=== PATIENT | female | born 1965 | race Caucasian/White ===

== ENCOUNTER → 2018-06-18 18:32 | Outpatient (REF) | payer OTHER, SELFPAY | LOC: LBN 18:32 | PROVIDERS: PCP Nurse Practitioner; Visit Provider Nurse Practitioner | DX: R30.0 Dysuria (principal) | CPT/HCPCS: 87077; 87086; 87186 ==

== ENCOUNTER 2019-06-20 16:16 | Emergency (ER) | payer OTHER, SELFPAY ==
[2019-06-20 16:19] VITALS: BP 156/91; PULSE 80; RESP 18; TEMP 36.6; O2SAT 95
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
[2019-06-20 16:43] LABS: Abs Immature Grans 0.01 k/cumm (0.0-0.09); Absolute Basophil Count 0.02 k/cumm (0.0-0.2); Absolute Eosinophil Count 0.17 k/cumm (0.0-0.7); Absolute Lymphocyte Count 1.47 k/cumm (1.2-3.4); Absolute Monocyte Count 0.48 k/cumm (0.11-0.7); Basophils % 0.3; HCT 41.5 % (36.0-46.0); Immature Grans % 0.2; Lymphocytes % 25.6; Mean Corp. HGB Concentration 33.7 g/dL (32.0-36.0); Mean Corpuscular Hemoglobin 29.5 pg (27.0-33.0); Mean Corpuscular Volume 87.4 fL (80-95); Mean Platelet Volume 9.8 fL (8.0-11.0); Monocytes % 8.3; Neutrophils % 62.6; Platelet Count 238 x1000/uL (130-400); RBC 4.75 m/cumm (4.00-5.20); RBC Distribution Width 12.9 % (11.7-14.6); White Blood Cell Count 5.75 k/cumm (4.4-10.8)
[2019-06-20 16:58] LABS: ALT 36 U/L (12-78); AST 11 U/L (15-37); Albumin 4.1 g/dL (3.4-5.0); Alkaline Phosphatase 105 U/L (46-116); Anion Gap 11.9 mmol/L (3-11); BUN 23 mg/dL (7-18); Bilirubin, Total 0.4 mg/dL (0.2-1.0); CO2 23.1 mmol/L (21.0-32.0); CREATININE 0.67 mg/dL (0.55-1.02); Chloride 105 mmol/L (98-107); Glucose 91 mg/dL (70-100); Potassium 4.3 mmol/L (3.5-5.1); Sodium 140 mmol/L (136-145); Total Protein 8.2 g/dL (6.4-8.2)
[2019-06-20] MEDS: Omnipaque 350 MG/ML 100 ML BTL IJ (17:23)
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
[2019-06-20] MEDS: Ibuprofen 800 MG TAB PO (17:28)
[2019-06-20] MEDS: Acetaminophen 500 MG TAB 1000 MG PO (17:28)
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
[2019-06-20 19:15] VITALS: BP 134/78; PULSE 80; RESP 16; O2SAT 98
== END 2019-06-20 19:21 | disposition home or self-care (01) ==
PROVIDERS: Emergency Provider Student in an Organized Health Care Education/Training Program; PCP Nurse Practitioner
DX: S83.92XA Sprain of unspecified site of left knee, initial encounter (principal); S40.011A Contusion of right shoulder, initial encounter; M54.2 Cervicalgia; R51 Headache; M79.652 Pain in left thigh; M54.6 Pain in thoracic spine; V43.52XA Car driver injured in collision with other type car in traffic accident, initial encounter
CPT/HCPCS: 29505; 36415; 73562; 80053; 99285; 70450; 71260; 72125; 73700; 85025; 99284; E0114; J3490; L0172; L1830

== ENCOUNTER 2022-06-29 15:40 | Emergency (ER) | payer OTHER, SELFPAY ==
[2022-06-29 15:46] VITALS: BP 158/95; PULSE 93; RESP 14; TEMP 36.5; O2SAT 97
--- NOTE | 2022-06-29 16:05 | W.ED.GENAD ---
Discharge Plan Disposition Patient Disposition: HOME Condition: Stable Discharge Details Clinical Impression: Insect bite Primary Care Provider: Liyah Flynn ED Provider: Lilly Gustafson Home Meds and New Rx's Prescriptions: No Action multivitamin [Daily Vitamin] 1 EACH tablet 1 ea PO DAILY calcium carbonate-vitamin D3 1 EACH tablet 1 ea PO DAILY ascorbate calcium (vitamin C) 500 MG tablet 500 mg PO DAILY albuterol sulfate 2.5 MG/0.5 ML solution for nebulization 2.5 mg Inhalation Q4H PRN Qty: 30 0RF levalbuterol tartrate [Xopenex HFA] 15 GM HFA aerosol inhaler 2 puff Inhalation Q6H PRN Qty: 1 3RF Rx Instructions: for cough & SOB amlodipine 5 mg tablet 5 tab PO DAILY Label Comments: TAKE 1 TABLET BY MOUTH ONCE DAILY Discharge Instructions Instructions: Insect Bite or Sting (ED) Additional Instructions: You may take 1 or 2 Benadryl every 6 to as needed for itching. You may take a nondrowsy antihistamine during the day such as Claritin or Zyrtec or similar. Apply hydrocortisone 3 times daily as needed. You may also purchase [id number] Benadryl topical ointment. Follow up with primary care provider in 3-5 days. Return to ED sooner if any worsening or concerns. Increase oral fluids. Please take Tylenol or Ibuprofen with food every 4-6 hours as needed for pain and swelling. Stand Alone Forms: Work Release Referrals: Liyah Flynn, [employer] [employer] [Primary Care Provider] - 1 week Discharge Data Discharge Date/Time-TO BE ENTERED AT DEPARTURE: 06/29/22 16:31 Medical Decision Making Patient is here, and topical hydrocortisone cream home care. Discussed strict return instructions. This text was generated using [employer] system, please disregard any oddities of phrase or misspellings. HPI General Mode of arrival: ambulatory. Date/Time Provider Initiated Documentation: 06/29/22 15:54. Limitations to Documentation: no limitations. Information obtained by: patient and RN notes reviewed. HPI Narrative: 57-year-old female presents to the ER with chief complaint of possible spider bite to the back of her right ankle. This occurred while she was at work. She reports feeling dizzy and lightheaded, swelling and she started shortly thereafter. She remembers seeing bilateral reduction. She can put some anti-itch on it prior to arrival. Small area approximately 9 cm x 2 cm of erythema and swelling noted to the posterior ankle. No other associated symptoms or complaints. Related Data Home Medications Medication Instructions Recorded Confirmed multivitamin (Daily Vitamin tablet) 1 ea PO DAILY 08/11/14 06/29/22 calcium carbonate 600 mg-vitamin 1 ea PO DAILY 10/11/16 06/29/22 D3 5 mcg (200 unit) tablet albuterol sulfate 2.5 mg/0.5 mL 2.5 mg (0.5 mL) inhalation Q4H PRN 12/18/17 06/29/22 solution for nebulization #30 vials ascorbate calcium (vitamin C) 500 500 mg PO DAILY 12/18/17 06/29/22 mg tablet levalbuterol tartrate 45 2 puff inhalation Q6H PRN ##1 12/18/17 06/29/22 mcg/actuation aerosol inhaler (Xopenex HFA) amlodipine 5 mg tablet 5 tab PO DAILY 06/29/22 06/29/22 Previous Rx's Medication Instructions Recorded albuterol sulfate 2.5 mg/0.5 mL 2.5 mg (0.5 mL) inhalation Q4H PRN 12/18/17 solution for nebulization #30 vials levalbuterol tartrate 45 2 puff inhalation Q6H PRN ##1 12/18/17 mcg/actuation aerosol inhaler (Xopenex HFA) Allergies Allergy/AdvReac Type Severity Reaction Status Date / Time codeine Allergy Severe ANAPHALAXSI Verified 06/29/22 15:50 S Sulfa (Sulfonamide Allergy Severe FACIAL Verified 06/29/22 15:50 Antibiotics) SWELLING amoxicillin trihydrate Allergy Intermediate Bodywide Verified 06/29/22 15:50 [From Augmentin] pruritic rash potassium clavulanate Allergy Intermediate Bodywide Verified 06/29/22 15:50 [From Augmentin] pruritic rash erythromycin base AdvReac Intermediate GI DISTRESS Verified 06/29/22 15:50 pregabalin [From Lyrica] AdvReac Intermediate HEADACHE Verified 06/29/22 15:50 carisoprodol [From Soma] AdvReac Mild Headache & Verified 06/29/22 15:50 Spacey chlorthalidone AdvReac Mild HYPOKALEMIA Verified 06/29/22 15:50 General Stated Complaint: RashLesion VERÓNICA: 4 Review of Systems Integumentary/Breasts Skin/Breast: Reports as per HPI, Reports pruritus, Reports erythema, Reports rash, Reports skin pain and Reports skin swelling PFSH All Active Problems (Updated 06/29/22 @ 16:09 by Lilly Gustafson NP) Insect bite (Acute) Depressive disorder (Chronic 11/17/11) Eczema of external ear (Acute) Left knee pain (Chronic) Anxiety (Chronic) Primary fibromyalgia syndrome (Acute 11/17/11) 08/20; consults with Dr. Thomas [facility] Rheum Obesity (Acute 07/05/12) Nasal septal perforation (Acute 09/18/17) Laryngoscopy w/ bx Dr. Paulino Marino 09/2017 acute and chronic inflammation, ulceration and subepithelial fibrosis Mixed incontinence (Acute 11/17/11) Kegel's; since TAMMI and bladder repair Insomnia (Acute 05/21/18) Family history of diabetes mellitus (Acute 11/17/11) Essential hypertension (Acute 04/16/13) dx 04/2013 Degenerative joint disease (DJD) of lumbar spine (Acute 07/09/14) MRI L4-L5 disc bulge Neurosurg consult 06/2014 Pain Clinic [facility] Dr. Auguste; epidural steroid injection 09/2014 Asthma (Acute 11/17/11) Albuterol once per month Acute dermatitis (Acute 06/26/13) EARS Surgical History Appendectomy 1999 Bladder Surgery Sling to help incontinence, 1992 Cholecystectomy 1991 epidural steroid injection (10/08/14) Dr Sherry Zamudio forearm fracture, 2010 LARYNGOSCOPY W/ BX Left medial tarsal tunnel surgery, Anjana, 2008 TAMMI/BSO 1992, removed due to ruptured cysts Tubal Ligation, Laparoscopic 1990 Vaginal hysterectomy Total hysterectomy, 1992 Social History Smoking/Tobacco Use Status: Never Smoking risk assessment performed?: Yes Alcohol Intake: current Alcohol Intake frequency: holidays/special occasions only Drug use: Never Substance use type: does not use What type of physical activity do you participate in: walking and other Details: active at work Do you feel safe at home: Yes Do you feel safe in your relationship?: Yes Exam Extrem Right lower extremity: ankle Details: tenderness and swelling Upper/lower leg/hip images: 1. Approximately 3 x 2 cm area of erythema and swelling Course Vital Signs Vital signs: Vital Signs Temperature 36.5 C 06/29/22 15:46 Pulse 93 H 06/29/22 15:46 Respiratory Rate 14 06/29/22 15:46 Blood Pressure 158/95 H 06/29/22 15:46 Pulse Oximetry 97 06/29/22 15:46 Temperature 36.5 C 06/29/22 15:46 Temperature Source Temporal Artery Scan 06/29/22 15:46 Pulse 93 H 06/29/22 15:46 Respiratory Rate 14 06/29/22 15:46 Respiratory Effort Non-Labored 06/29/22 15:53 Blood Pressure 158/95 H 06/29/22 15:46 Blood Pressure Position Sitting 06/29/22 15:46 Pulse Oximetry 97 06/29/22 15:46 Oxygen Delivery Method Room Air 06/29/22 15:46 Oxygen Flow Rate 0 06/29/22 15:46 Pain Level 4 06/29/22 15:46 PAWSS Have you Been Recently Intoxicated or Drunk Within the Last 30 days?: Yes Have you Ever Experienced Previous Episodes of Alcohol Withdrawal?: No Have you ever Experienced Withdrawal Seizures?: No Have you ever Experienced Delirium Tremens(DT)s?: No Have you ever undergone Alcohol Rehabilitation Treatment (i.e, inpt ot outpatient treatment programs)?: No Have you ever Experienced Blackouts?: No Have you ever Combined Alcohol with other Downers within the last 90 days?: No Have you ever Combined Alcohol with any other Substance of Abuse during the last 90 days?: No Positive Blood Alcohol level on Presentation? [PCS.BAL]: No Evidence of Increased Autonomic Activity (i.e. HR>120, tremor, sweating, agitation, nausea)?: No Result: 1
[2022-06-29] MEDS: Cetirizine 10 MG TAB PO (16:30)
[2022-06-29] MEDS: Famotidine 20 MG TAB PO (16:30)
[2022-06-29] MEDS: Hydrocortisone 1% CR 30 GM TUBE TP (16:30)
== END 2022-06-29 16:31 | disposition home or self-care (01) ==
PROVIDERS: Emergency Provider Registered Nurse Emergency; PCP Nurse Practitioner
DX: S91.051A Open bite, right ankle, initial encounter (principal); W57.XXXA Bitten or stung by nonvenomous insect and other nonvenomous arthropods, initial encounter; Y99.0 Civilian activity done for income or pay
CPT/HCPCS: 99283

== ENCOUNTER → 2022-10-05 01:30 | Outpatient (CLI) | payer BC, SELFPAY ==
--- NOTE | 2022-10-05 07:45 | DI.MAMMO_ITS ---
Exam(s) MAMMO SCREENING EXAM: MAMMO SCREENING CLINICAL HISTORY: screening,Z12.39 TECHNIQUE: Mammograms were interpreted according to the usual protocol including computer analysis w [employer]iere CAD system, tomosynthesis and C-view imaging. COMPARISON: FINDINGS: The breasts are of moderate density with fairly symmetrical distribution of fibroglandular tissue. N o dominant mass or clumped microcalcification is identified in either breast. The current examinatio n is compared with previous examinations including December 2017 and there is a increased prominence of an area of retroareolar nodularity in the right breast seen on CC and MLO views, additional mammog raphic views recommended to evaluate this finding. No other significant change seen. IMPRESSION: Additional mammographic views of the right breast recommended as described above to include CC and ML O spot compression views. Breast ultrasound may be indicated as well depending on the results of add itional mammographic views. BI-RADS Category 0 - Assessment Incomplete: Need additional imaging evaluation Breast Density - Category B - Scattered areas of fibroglandular density
== END ==
PROVIDERS: PCP Nurse Practitioner; Visit Provider Nurse Practitioner
DX: Z12.31 Encounter for screening mammogram for malignant neoplasm of breast (principal); R92.8 Other abnormal and inconclusive findings on diagnostic imaging of breast
CPT/HCPCS: 77063; 77067

== ENCOUNTER 2022-10-07 01:41 | Outpatient (CLI) | payer BC, SELFPAY ==
[2022-10-07 07:27] LABS: HCT 41.5 % (36.0-46.0); HGB 13.7 g/dL (11.2-15.7); MCH 28.8 pg (27.0-33.0); MCV 87 fL (80-95); MPV 9.4 fL (8.0-11.0); Platelet Count 241 10^3/uL (130-400); RBC 4.75 10^6/uL (3.93-5.22); RDW 12.5 % (11.7-14.6); RDW-SD 40.1 fL; WBC 5.66 10^3/uL (4.4-10.8)
[2022-10-07 08:06] LABS: Hemoglobin A1C 5.5 % (<5.7)
[2022-10-07 08:35] LABS: ALT 46 U/L (14-59); AST 22 U/L (15-37); Alkaline Phosphatase 110 U/L (46-116); Anion Gap 10.5 mmol/L (3-11); BUN 16 mg/dL (7-18); Bilirubin, Total 0.8 mg/dL (0.2-1.0); CO2 23.5 mmol/L (21.0-32.0); CREATININE 0.6 mg/dL (0.55-1.02); Calcium 9.1 mg/dL (8.5-10.1); Calculated LDL 123 mg/dL (<100); Chloride 104 mmol/L (98-107); Cholesterol 203 mg/dL (<200); Estimated GFR 105.28 (mL/min/1.73m2); Glucose 111 mg/dL (74-106); HDL Cholesterol 62 mg/dL (40-60); Sodium 138 mmol/L (136-145); Total Protein 8.2 g/dL (6.4-8.2); Triglyceride 94 mg/dL (<150)
== END 2022-10-07 01:42 | disposition home or self-care (01) ==
PROVIDERS: PCP Nurse Practitioner; Visit Provider Nurse Practitioner
DX: E66.9 Obesity, unspecified (principal); Z83.3 Family history of diabetes mellitus; I10 Essential (primary) hypertension
CPT/HCPCS: 36415; 80053; 80061; 85027; 83036

== ENCOUNTER 2022-10-14 00:48 | Outpatient (CLI) | payer BC, SELFPAY ==
--- NOTE | 2022-10-14 10:25 | DI.MAMMO_ITS ---
Exam(s) MAMMO SCREEN CALL BACK UNI EXAM: MAMMO SCREEN CALL BACK UNI CLINICAL HISTORY: INCREASE PROMINENCE OF RETROAREOLAR NODULARITY RT BREAST TECHNIQUE: Spot compression views with tomographic imaging were performed. COMPARISON: 05 October 2022 and prior exams 2013 and 2017. FINDINGS: No suspicious masses or suspicious microcalcifications are seen. No suspicious abnormality is seen on the additional views performed. The findings are consistent wit h overlying fibroglandular tissue. There has been no significant change from prior exams. IMPRESSION: BI-RADS Category 1, Negative Yearly screening mammography is recommended. Breast Density - Category B, scattered fibroglandular densities.
== END 2022-10-14 01:08 ==
LOC: DI 00:48
PROVIDERS: PCP Nurse Practitioner; Visit Provider Nurse Practitioner
DX: Z12.31 Encounter for screening mammogram for malignant neoplasm of breast (principal)
CPT/HCPCS: 77063; 77067

== ENCOUNTER 2022-10-29 18:13 | Emergency (ER) | payer BC, SELFPAY ==
[2022-10-29] VITALS (36 sets, daily range): BP systolic 118–155; BP diastolic 54–97; PULSE 80–119; RESP 12–34; TEMP 37.3; O2SAT 94–98
--- NOTE | 2022-10-29 18:30 | RT.EKG_ITS ---
APPROVED REPORT Exam: Resting ECG Reason for Exam: shoulder pain Patient Location: E HR:101 bpm ECG Measurements Heart Rate 101 AXIS MA 145 P 24 QRSd 80 QRS 25 QT 306 T 2 QTc 398 Conclusion Sinus tachycardia...rate> 99 Probable left atrial enlargement...P >50mS, <-0.10mV V1
--- NOTE | 2022-10-29 18:30 | DI.RAD_ITS ---
Exam(s) XR PORTABLE CHEST AP EXAM: XR PORTABLE CHEST AP CLINICAL HISTORY: chest pain radiates to back TECHNIQUE: 2D digital imaging was performed. COMPARISON: CT CT CHEST W from 06/20/2019 FINDINGS: LUNGS: Clear. No pleural abnormality seen. HEART: Normal size. AORTA: Normal diameter. BONES: Unremarkable for age. Soft tissues: Unremarkable. IMPRESSION: No acute findings. DATA REPOSITORY: RADIATION DOSE DELIVERED:
--- NOTE | 2022-10-29 18:46 | DI.CT_ITS ---
Exam(s) CT THORAX ABD/PEL CTA EXAM: CT THORAX ABD/PEL CTA CLINICAL HISTORY: concern for dissection. TECHNIQUE: Imaging Protocol: Axial computed tomography images with coronal and sagittal reformatted images were created and reviewed CONTRAST MATERIAL: Intravenous: Omnipaque 350 Contrast volume:100 ml Oral: / no COMPARISON: CT ABD PELVIS WO CONTRAST from 07/18/2017 FINDINGS: CHEST: Tracheobronchial tree: Patent where visualized. Mediastinum and Darlene: No dominant adenopathy or fluid collection. Pulmonary parenchyma: Mild atelectasis right lower lobe. No consolidation or dominant measurable mas s. Pleura: No effusion or pneumothorax. Lymph nodes: Within normal limits. Aorta: Thoracic portion non-dilated. No evidence of dissection. No significant atherosclerotic corey nges. Heart: Normal size. No pericardial effusion. Mild coronary artery calcifications. Bones: Degenerative changes in the spine. No lytic or blastic lesions. Small hiatal hernia. ABDOMEN: Liver: Normal density. No measurable mass. Gallbladder and biliary tract: Status post cholecystectomy. No radiodense calculus or dilation. Pancreas: Normal density, no abnormal calcifications or inflammatory process. Spleen: Normal. Kidneys: Normal size, contour and axis. No radiodense stones or obstructive uropathy. No masses seen. Adrenal glands: No masses seen. Aorta: Abdominal portion non-dilated. Lymph nodes: Within normal limits. Soft tissues: Unremarkable. PELVIS: Bladder: Symmetric distention, no gross wall thickening. Bowel: No obstruction or bowel wall thickening. Peritoneal cavity: No ascites, collection or mesenteric inflammatory response. Bones: Degenerative changes greatest at L4-5 causing severe spinal stenosis. Reproductive organs: Status post hysterectomy. IMPRESSION: No acute abnormality in the chest abdomen or pelvis.. RADIATION DOSE DELIVERED: 1,311.2mGy.cm Total DLP DATA REPOSITORY: All CT scans at this facility are submitted to the National Radiology Data Registry (NRDR) Dose Index Registry (DIR) with the [employer] (ACR). RADIATION OPTIMIZATION: All CT scans at this facility use at least one of these dose optimization te chniques: automated exposure control; mA and/or kV adjustment per patient size (includes targeted exa ms where dose is matched to clinical indication); or iterative reconstruction.
--- NOTE | 2022-10-29 18:54 | DI.VRAD_ITS ---
PROCEDURE INFORMATION: Exam: XR Chest Exam date and time: 10/29/2022 6:23 PM Age: 57 years old Clinical indication: Other: Chest pain radiates to back TECHNIQUE: Imaging protocol: Radiologic exam of the chest. Views: 1 view. COMPARISON: CT CHEST W 06/20/2019 5:07 PM FINDINGS: Lungs: Unremarkable. No consolidation. Pleural spaces: Unremarkable. No pleural effusion. No pneumothorax. Heart/Mediastinum: Unremarkable. No cardiomegaly. Bones/joints: Unremarkable. IMPRESSION: No acute findings. Dictated and Authenticated by: Roney Hernandez MD. Ordering:MARIYA Sharpe MD
[2022-10-29 18:55] LABS: Abs Immature Grans 0.03 10^3/uL (0.0-0.06); Absolute Basophil Count 0.04 10^3/uL (0.0-0.2); Absolute Eosinophil Count 0.09 10^3/uL (0.0-0.7); Absolute Lymphocyte Count 1.44 10^3/uL (1.2-3.4); Absolute Monocyte Count 0.81 10^3/uL (0.1-0.8); Absolute Neutrophil Count 8.07 10^3/uL (1.2-6.7); Basophils % 0.4; Eosinophils % 0.9; HCT 40.8 % (36.0-46.0); HGB 13.3 g/dL (11.2-15.7); Immature Grans % 0.3; Lymphocytes % 13.7; MCH 28.6 pg (27.0-33.0); MCHC 32.6 % (32.0-36.0); MCV 88 fL (80-95); MPV 9.5 fL (8.0-11.0); Monocytes % 7.7; Platelet Count 233 10^3/uL (130-400); RBC 4.65 10^6/uL (3.93-5.22); RDW 12.7 % (11.7-14.6); RDW-SD 41.1 fL; WBC 10.48 10^3/uL (4.4-10.8)
[2022-10-29] MEDS: HYDROmorphone 2 MG/ML SYR 1 MG IVP (18:56)
[2022-10-29] MEDS: Ondansetron 4 MG/2 ML VIAL IVP (18:57)
[2022-10-29] MEDS: Ondansetron 4 MG/2 ML VIAL (18:57)
--- NOTE | 2022-10-29 19:11 | W.ED.GENAD ---
Discharge Plan Disposition Patient Disposition: Home Condition: Stable Discharge Details Clinical Impression: Epigastric abdominal pain Primary Care Provider: Liyah Flynn ED Provider: Annemarie Kemp Home Meds and New Rx's Prescriptions: New pantoprazole 40 mg tablet,delayed release (DR/EC) 40 mg PO DAILY Qty: 30 0RF sucralfate 1 gram tablet 1 g PO QACHS Qty: 120 0RF Continued sertraline 25 mg tablet 25 mg PO DAILY Qty: 90 1RF levalbuterol tartrate [Xopenex HFA] 45 mcg/actuation HFA aerosol inhaler 2 puff Inhalation Q6H PRN Qty: 1 12RF Rx Instructions: for cough & SOB multivitamin [Daily Vitamin] 1 EACH tablet 1 ea PO DAILY calcium carbonate-vitamin D3 1 EACH tablet 1 ea PO DAILY No Action acetaminophen [Tylenol Arthritis Pain] 650 mg tablet extended release 1,300 mg PO Q4H PRN PRN ibuprofen 200 mg tablet 800 mg PO Q4H PRN methylprednisolone [Medrol (Norris)] 4 mg tablets,dose pack See Rx Instructions .Route .COMPLEX Qty: 21 0RF Rx Instructions: 6 tabs day 1, 5 tabs day 2, 4 tabs day 3, 3 tabs day 4, 2 tabs day 5, 1 tabs day 6 with food. cyclobenzaprine 10 mg tablet See Rx Instructions PO TID PRN (Reason: muscle spasm) Qty: 20 0RF Rx Instructions: 1/2 to 1 tab orally three times a day PRN; valsartan 80 mg tablet 80 mg PO DAILY Qty: 30 0RF lorazepam 1 mg tablet 1 mg PO ONCE Qty: 1 0RF Discharge Instructions Instructions: Epigastric Pain (ED) Referrals: Liyah Flynn, [employer] [facility] [Primary Care Provider] - Discharge Data Discharge Date/Time-TO BE ENTERED AT DEPARTURE: 10/30/22 00:12 Medical Decision Making Imaging Data Radiologic Study: Imaging: CT Scan Radiologist's impression: Exam(s) PROCEDURE INFORMATION: Exam: CTA Chest With Contrast CTA Abdomen and Pelvis With Contrast Exam date and time: 10/29/2022 7:02 PM Age: 57 years old Clinical indication: Pain; Other: Concern for dissection TECHNIQUE: Imaging protocol: Computed tomographic angiography of the chest with contrast. Computed tomographic angiography of the abdomen and pelvis with contrast. 3D rendering (Not supervised by radiologist): MIP and/or 3D reconstructed images were created by the technologist. COMPARISON: CT CHEST W 06/20/2019 5:07 PM FINDINGS: VASCULATURE: Pulmonary arteries: Pulmonary artery opacification is of good technical quality. No embolism evident. Aorta: Thoracic aorta is normal in course and caliber. No aneurysm. No dissection. Abdominal aorta without aneurysmal change. Celiac trunk and mesenteric arteries: Celiac artery is widely patent. Superior mesenteric arteries widely patent. Renal arteries: Right renal artery is widely patent. Left renal arteries widely patent. Right iliac arteries: Right iliac artery is widely patent. Left iliac arteries: Left iliac artery is widely patent. CHEST: Lungs: No acute lung infiltrates or significant airspace consolidation. Minor atelectasis of the posteroinferior right lower lobe. Mild bronchiectasis suggesting COPD. Pleural spaces: Unremarkable. No pneumothorax. No pleural effusion. Heart: Normal heart size. No pericardial effusion. Mild coronary artery atherosclerotic calcium. Diaphragm: small hiatal hernia. No acute features. Small bowel loops are normal in course and caliber. There is no mucosal edema or bowel wall thickening. No obstructive features. ABDOMEN AND PELVIS: Liver: The liver is normal in size, contour and attenuation. Gallbladder and bile ducts: Patient has had a previous cholecystectomy. There is no biliary dilatation. There are no ductal stones visible. Pancreas: The pancreas is normal in contour and attenuation. Spleen: The spleen is normal in size, contour and attenuation. Adrenal glands: The adrenal glands are normal in size and contour bilaterally. Kidneys and ureters: The kidneys bilaterally are unremarkable. Normal attenutation. No hydronephrosis. No calculi. Stomach and bowel: Gastric morphology is unremarkable. No edema. No gastric outlet obstruction. The colon contains formed fecal material. There is no bowel wall thickening. No inflammatory features. No obstruction. Appendix: No evidence of appendicitis. Intraperitoneal space: Unremarkable. No free air. No significant fluid collection. Urinary bladder: Unremarkable. No mass. Reproductive: Previous hysterectomy. Lymph nodes: Unremarkable. No enlarged lymph nodes. Bones/joints: Thoracic spine degenerative disease. No acute skeletal changes of the thorax. Degenerative lumbar spine changes. Degenerative anterolisthesis of L4 on L5 at approximally 7-8 mm. Severe spinal stenosis at L4-L5. Soft tissues: Chest wall soft tissues are unremarkable. IMPRESSION: 1. Thoracic and abdominal aorta are unremarkable. No aneurysmal change. No dissection. 2. Pulmonary artery without embolism. 3. Mesenteric vessels are widely patent. 4. Lung hoffmann are clear. No pleural disease. 5. Normal cardiac size. No pericardial effusion. Mild left coronary artery atherosclerotic calcium. 6. Abdominal and pelvic viscera are unremarkable. No acute changes. 7. Previous hysterectomy. Previous cholecystectomy. 8. Degenerative lumbar spine disease. Severe spinal stenosis at L4-L5. Dictated and Authenticated by: Roney Hernandez MD. Ordering:MARIYA Sharpe MD Radiologic Study #2: Imaging: X-Ray Radiologist's impression: PROCEDURE INFORMATION: Exam: XR Chest Exam date and time: 10/29/2022 6:23 PM Age: 57 years old Clinical indication: Other: Chest pain radiates to back TECHNIQUE: Imaging protocol: Radiologic exam of the chest. Views: 1 view. COMPARISON: CT CHEST W 06/20/2019 5:07 PM FINDINGS: Lungs: Unremarkable. No consolidation. Pleural spaces: Unremarkable. No pleural effusion. No pneumothorax. Heart/Mediastinum: Unremarkable. No cardiomegaly. Bones/joints: Unremarkable. IMPRESSION: No acute findings. Dictated and Authenticated by: Roney Hernandez MD. Ordering:MARIYA Sharpe MD HPI General Limitations to Documentation: no limitations. Information obtained by: patient. HPI Narrative: This is a 57-year-old female with history of hypertension asthma fibromyalgia anxiety who was in her usual state of health when she had a sudden onset of chest pain that she states radiates to her back and right shoulder. She says that the pain is sharp and that it hurts to take a deep breath. She feels restless. It hurts more to lay flat. She states she feels short of breath only because of the pain cannot take a deep breath. There is no radiation into her jaw left arm she states the pain is more severe than when she broke my arm. She denies any similar history in the past. There was no trauma. Related Data Home Medications Medication Instructions Recorded Confirmed multivitamin (Daily Vitamin tablet) 1 ea PO DAILY 08/11/14 10/29/22 calcium carbonate 600 mg-vitamin 1 ea PO DAILY 10/11/16 10/29/22 D3 5 mcg (200 unit) tablet levalbuterol tartrate 45 2 puff inhalation Q6H PRN ##1 09/19/22 10/29/22 mcg/actuation aerosol inhaler (Xopenex HFA) sertraline 25 mg tablet 25 mg PO DAILY #90 tabs 10/17/22 10/29/22 pantoprazole 40 mg tablet,delayed 40 mg PO DAILY #30 tabs 10/29/22 release sucralfate 1 gram tablet 1 g PO QACHS #120 tabs 10/29/22 acetaminophen 650 mg 1,300 mg PO Q4H PRN PRN 10/31/22 tablet,extended release (Tylenol Arthritis Pain) cyclobenzaprine 10 mg tablet See Rx Instructions PO TID PRN 10/31/22 10/31/22 muscle spasm #20 tabs ibuprofen 200 mg tablet 800 mg PO Q4H PRN 10/31/22 methylprednisolone 4 mg tablets in See Rx Instructions .Route 10/31/22 10/31/22 a dose pack (Medrol (Twyxt)) .COMPLEX #21 dose pk valsartan 80 mg tablet 80 mg PO DAILY #30 tabs 10/31/22 10/31/22 lorazepam 1 mg tablet 1 mg PO ONCE 30 minutes Before MRI 11/08/22 #1 tab Previous Rx's Medication Instructions Recorded levalbuterol tartrate 45 2 puff inhalation Q6H PRN ##1 09/19/22 mcg/actuation aerosol inhaler (Xopenex HFA) sertraline 25 mg tablet 25 mg PO DAILY #90 tabs 10/17/22 pantoprazole 40 mg tablet,delayed 40 mg PO DAILY #30 tabs 10/29/22 release sucralfate 1 gram tablet 1 g PO QACHS #120 tabs 10/29/22 cyclobenzaprine 10 mg tablet See Rx Instructions PO TID PRN 10/31/22 muscle spasm #20 tabs methylprednisolone 4 mg tablets in See Rx Instructions .Route 10/31/22 a dose pack (Medrol (Twyxt)) .COMPLEX #21 dose pk valsartan 80 mg tablet 80 mg PO DAILY #30 tabs 10/31/22 lorazepam 1 mg tablet 1 mg PO ONCE 30 minutes Before MRI 11/08/22 #1 tab Allergies Allergy/AdvReac Type Severity Reaction Status Date / Time codeine Allergy Severe ANAPHALAXSI Verified 10/31/22 10:22 S Sulfa (Sulfonamide Allergy Severe FACIAL Verified 10/31/22 10:22 Antibiotics) SWELLING amoxicillin trihydrate Allergy Intermediate Bodywide Verified 10/31/22 10:22 [From Augmentin] pruritic rash potassium clavulanate Allergy Intermediate Bodywide Verified 10/31/22 10:22 [From Augmentin] pruritic rash erythromycin base AdvReac Intermediate GI DISTRESS Verified 10/31/22 10:22 pregabalin [From Lyrica] AdvReac Intermediate HEADACHE Verified 10/31/22 10:22 carisoprodol [From Soma] AdvReac Mild Headache & Verified 10/31/22 10:22 Spacey chlorthalidone AdvReac Mild HYPOKALEMIA Verified 10/31/22 10:22 General Stated Complaint: Chest Pain VERÓNICA: 2 Review of Systems All systems reviewed & are unremarkable except as noted in HPI and below ENT Ears, Nose, Mouth, and Throat: Denies neck pain Cardiovascular Cardiovascular: Reports chest pain (Constant) and Denies dyspnea Respiratory Respiratory: Denies cough, Denies dyspnea and Denies wheezing Gastrointestinal Gastrointestinal: Denies abdominal pain, Denies constipation, Denies nausea and Denies vomiting Musculoskeletal Musculoskeletal: Denies arthralgias, Denies neck pain and Denies numbness Neurologic Neurologic: Denies numbness Allergic/Immunologic Allergic/Immunologic: Denies wheezing PFSH All Active Problems (Updated 10/29/22 @ 23:06 by Annemarie Kemp NP) Epigastric abdominal pain (Acute) Depressive disorder (Chronic 11/17/11) Eczema of external ear (Acute) Left knee pain (Chronic) Anxiety (Chronic) Primary fibromyalgia syndrome (Acute 11/17/11) 08/20; consults with Dr. Thomas [facility] Rheum Obesity (Acute 07/05/12) Nasal septal perforation (Acute 09/18/17) Laryngoscopy w/ bx Dr. Paulino Marino 09/2017 acute and chronic inflammation, ulceration and subepithelial fibrosis Mixed incontinence (Acute 11/17/11) Kegel's; since TAMMI and bladder repair Insomnia (Acute 05/21/18) Family history of diabetes mellitus (Acute 11/17/11) Essential hypertension (Acute 04/16/13) dx 04/2013 Degenerative joint disease (DJD) of lumbar spine (Acute 07/09/14) MRI L4-L5 disc bulge Neurosurg consult 06/2014 Pain [facility] Dr. Auguste; epidural steroid injection 09/2014 Asthma (Acute 11/17/11) Albuterol once per month Acute dermatitis (Acute 06/26/13) EARS Surgical History Appendectomy 1999 Bladder Surgery Sling to help incontinence, 1992 Cholecystectomy 1991 epidural steroid injection (10/08/14) Dr Sherry Zamudio forearm fracture, 2010 LARYNGOSCOPY W/ BX Left medial tarsal tunnel surgery, Anjana, 2008 TAMMI/BSO 1992, removed due to ruptured cysts Tubal Ligation, Laparoscopic 1990 Vaginal hysterectomy Total hysterectomy, 1992 Family History (Updated 10/17/22 @ 11:28 by Divya Ford RN) Maternal Aunt No problems noted. Paternal Uncle Alcohol use disorder Asthma Paternal Aunt Alcohol use disorder Asthma Breast cancer Maternal Uncle Alcohol use disorder Stroke Father Asthma Cancer Prostate, bladder Depression Diabetes Heart disease Hypertension Prostate cancer Paternal Grandmother Asthma Paternal Cousin Asthma Mother Cancer throat Depression Diabetes Heart disease Hyperlipidemia Hypertension Stroke Brother Cancer prostate, bladder, rectal Brother AIDS Prostate cancer Social History (Updated 10/17/22 @ 11:38 by Divya Ford RN) Smoking/Tobacco Use Status: Never Second Hand Exposure: Yes Smoking risk assessment performed?: Yes Alcohol Intake: current Alcohol Intake frequency: a few times a month Drug use: Never Substance use type: does not use Adopted: No Caregiver/Support person: No Foster care: No Household members: significant other Housing: house Number of Children: 2 number of grandchildren: 9 Communication Needs: Corrective Lenses Education Level: college 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: Associates Do you need help understanding health information?: Never current occupation: [employer] Pets and animals: No Sexually active: Yes Do you think of yourself as: straight/heterosexual Current gender identity: female What is your relationship status?: living with partner How often do you talk on the phone with friends or family?: three or more times per week How often do you get together with friends or relatives?: once per week Do you belong to any clubs or organized social groups?: no Panel score (0-1 are the most socially isolated patients): 2 What type of physical activity do you participate in: walking and other Details: active at work Elina/[employer]: [employer] Special elina needs: No Seatbelt use: sometimes Helmet use: Yes Helmet use: always Drive intox or ride w/intox 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 Do you feel safe at home: Yes Do you feel safe in your relationship?: Yes Exam Const General: acute distress severe and ill appearing acutely Nutritional Appearance: overweight Orientation: alert, awake and oriented x3 [facility] Head: normal to inspection, normocephalic and atraumatic Mouth: oral mucosae normal Chest Chest: normal inspection of the chest Resp Effort & Inspection: normal respiratory effort, no audible wheezes, no cough, respiratory effort not decreased and not labored Auscultation: clear to auscultation bilaterally Cardio Rate: tachycardic Rhythm: regular rhythm GI Inspection: normal to inspection Palpation: soft Skin General skin exam: no rashes or lesions noted Neuro General: patient alert, patient awake, patient oriented x3 and no focal motor deficits Extrem General: normal to inspection and full ROM Course Vital Signs Vital signs: Vital Signs Temperature 37.3 C 10/29/22 18:34 Pulse 106 H 10/29/22 18:34 Respiratory Rate 22 10/29/22 18:34 Blood Pressure 155/97 H 10/29/22 18:34 Pulse Oximetry 98 10/29/22 18:34 Temperature 37.3 C 10/29/22 18:34 Temperature Source Temporal Artery Scan 10/29/22 18:34 Pulse 106 H 10/29/22 18:34 Respiratory Rate 22 10/29/22 18:34 Respiratory Effort 10/29/22 18:48 Blood Pressure 155/97 H 10/29/22 18:34 Blood Pressure Position Sitting 10/29/22 18:34 Pulse Oximetry 98 10/29/22 18:34 Oxygen Delivery Method Room Air 10/29/22 18:34 Oxygen Flow Rate 0 10/29/22 18:34 Pain Level 10 10/29/22 18:34 Lab/Test Results Lab/Test Results: Laboratory Tests Range/Units 10/29/22 18:43 WBC (4.4-10.8) 10^3/uL 10.48 RBC (3.93-5.22) 10^6/uL 4.65 Hgb (11.2-15.7) g/dL 13.3 Hct (36.0-46.0) % 40.8 MCV (80-95) fL 88 MCH (27.0-33.0) pg 28.6 MCHC (32.0-36.0) % 32.6 RDW (11.7-14.6) % 12.7 Plt Count (130-400) 10^3/uL 233 MPV (8.0-11.0) fL 9.5 Immature Gran % 0.3 Neutrophils % 77.0 Lymphocytes % 13.7 Monocytes % 7.7 Eosinophils % 0.9 Basophils % 0.4 Nucleated RBC % (0.0-0.3) % 0.0 Absolute Neutrophils (1.2-6.7) 10^3/uL 8.07 H Absolute Lymphocytes (1.2-3.4) 10^3/uL 1.44 Absolute Monocytes (0.1-0.8) 10^3/uL 0.81 H Absolute Eosinophils (0.0-0.7) 10^3/uL 0.09 Absolute Basophils (0.0-0.2) 10^3/uL 0.04
[2022-10-29 19:18] LABS: ALT 34 U/L (14-59); AST 20 U/L (15-37); Albumin 4.2 g/dL (3.4-5.0); Alkaline Phosphatase 115 U/L (46-116); Anion Gap 7.3 mmol/L (3-11); BUN 20 mg/dL (7-18); Bilirubin, Total 0.5 mg/dL (0.2-1.0); CO2 28.7 mmol/L (21.0-32.0); CREATININE 0.6 mg/dL (0.55-1.02); Calcium 9.3 mg/dL (8.5-10.1); Chloride 102 mmol/L (98-107); Estimated GFR 105.28 (mL/min/1.73m2); Glucose 99 mg/dL (74-106); Sodium 138 mmol/L (136-145); Total Protein 8.5 g/dL (6.4-8.2); Troponin I < 50 ng/L (<or=60)
[2022-10-29 19:19] LABS: INR 0.9 (0.9-1.1); Prothrombin Time 9.5 sec (9.3-11.0)
--- NOTE | 2022-10-29 19:36 | DI.VRAD_ITS ---
PROCEDURE INFORMATION: Exam: CTA Chest With Contrast CTA Abdomen and Pelvis With Contrast Exam date and time: 10/29/2022 7:02 PM Age: 57 years old Clinical indication: Pain; Other: Concern for dissection TECHNIQUE: Imaging protocol: Computed tomographic angiography of the chest with contrast. Computed tomographic angiography of the abdomen and pelvis with contrast. 3D rendering (Not supervised by radiologist): MIP and/or 3D reconstructed images were created by the technologist. COMPARISON: CT CHEST W 06/20/2019 5:07 PM FINDINGS: VASCULATURE: Pulmonary arteries: Pulmonary artery opacification is of good technical quality. No embolism evident. Aorta: Thoracic aorta is normal in course and caliber. No aneurysm. No dissection. Abdominal aorta without aneurysmal change. Celiac trunk and mesenteric arteries: Celiac artery is widely patent. Superior mesenteric arteries widely patent. Renal arteries: Right renal artery is widely patent. Left renal arteries widely patent. Right iliac arteries: Right iliac artery is widely patent. Left iliac arteries: Left iliac artery is widely patent. CHEST: Lungs: No acute lung infiltrates or significant airspace consolidation. Minor atelectasis of the posteroinferior right lower lobe. Mild bronchiectasis suggesting COPD. Pleural spaces: Unremarkable. No pneumothorax. No pleural effusion. Heart: Normal heart size. No pericardial effusion. Mild coronary artery atherosclerotic calcium. Diaphragm: small hiatal hernia. No acute features. Small bowel loops are normal in course and caliber. There is no mucosal edema or bowel wall thickening. No obstructive features. ABDOMEN AND PELVIS: Liver: The liver is normal in size, contour and attenuation. Gallbladder and bile ducts: Patient has had a previous cholecystectomy. There is no biliary dilatation. There are no ductal stones visible. Pancreas: The pancreas is normal in contour and attenuation. Spleen: The spleen is normal in size, contour and attenuation. Adrenal glands: The adrenal glands are normal in size and contour bilaterally. Kidneys and ureters: The kidneys bilaterally are unremarkable. Normal attenutation. No hydronephrosis. No calculi. Stomach and bowel: Gastric morphology is unremarkable. No edema. No gastric outlet obstruction. The colon contains formed fecal material. There is no bowel wall thickening. No inflammatory features. No obstruction. Appendix: No evidence of appendicitis. Intraperitoneal space: Unremarkable. No free air. No significant fluid collection. Urinary bladder: Unremarkable. No mass. Reproductive: Previous hysterectomy. Lymph nodes: Unremarkable. No enlarged lymph nodes. Bones/joints: Thoracic spine degenerative disease. No acute skeletal changes of the thorax. Degenerative lumbar spine changes. Degenerative anterolisthesis of L4 on L5 at approximally 7-8 mm. Severe spinal stenosis at L4-L5. Soft tissues: Chest wall soft tissues are unremarkable. IMPRESSION: 1. Thoracic and abdominal aorta are unremarkable. No aneurysmal change. No dissection. 2. Pulmonary artery without embolism. 3. Mesenteric vessels are widely patent. 4. Lung hoffmann are clear. No pleural disease. 5. Normal cardiac size. No pericardial effusion. Mild left coronary artery atherosclerotic calcium. 6. Abdominal and pelvic viscera are unremarkable. No acute changes. 7. Previous hysterectomy. Previous cholecystectomy. 8. Degenerative lumbar spine disease. Severe spinal stenosis at L4-L5. Dictated and Authenticated by: Roney Hernandez MD. Ordering:MARIYA hSarpe MD
[2022-10-29 19:54] LABS: Lipase 55 U/L (73-393)
[2022-10-29 20:19] LABS: D-Dimer 660 ng/mlFEU (<500)
[2022-10-29] MEDS: Ketorolac 15 MG/ML VIAL IVP (20:42)
[2022-10-29] MEDS: Pantoprazole 40 MG VIAL IVP (20:42)
[2022-10-29] MEDS: Ketorolac 15 MG/ML VIAL (20:42)
[2022-10-29] MEDS: Acetaminophen 500 MG TAB 1000 MG PO (22:41)
[2022-10-29] MEDS: Lidocaine 5% Patch 2 PATCH TP (22:42)
[2022-10-29] MEDS: Lidocaine 5% Patch 1 PATCH (22:42)
[2022-10-29 23:00] LABS: Troponin I < 50 ng/L (<or=60)
== END 2022-10-30 00:12 | disposition home or self-care (01) ==
PROVIDERS: Emergency Provider Nurse Practitioner Acute Care; PCP Nurse Practitioner
DX: R10.13 Epigastric pain (principal); I10 Essential (primary) hypertension; J45.909 Unspecified asthma, uncomplicated
CPT/HCPCS: 36415; 71275; 80053; 83690; 86850; 86900; 86901; 93005; 96374; 96375; 99285; 71045; 74174; 84484; 85025; 85379; 85610; 93010; J1170; J1885; J2405

== ENCOUNTER 2022-11-03 00:52 | Outpatient (CLI) | payer BC, SELFPAY ==
--- NOTE | 2022-11-03 08:00 | ETT_ITS ---
APPROVED REPORT Exam: Exercise Treadmill Patient Location: Out-Patient Room/Bed: Stress Nurse: Roselyn Tolentino RN Ordering Provider:VIDAL POWERS, Contact Number: [phone] BMI: 36.72 Baseline Rhythm: Sinus Rhythm Indications: Family h/o heart disease, chest pain Medical History Medical History: HTN, anxiety, obesity, asthma, depression, fibromyalgia Cardiac Medications: Amlodipine, levalbuterol tartrate, pantoprazole Allergies: codeine, sulfa, augmentin, erythromycin, pregabalin, carisoprodol, chlorthalidone Cardiac Risk Factors: +family history, HTN, asthma, obesity Previous Cardiac Procedures: None Pretest Chest Pain Characteristics: None Exercise History: Sedentary Physical Disabilities: None Stress Test Details Test: Exercise stress testing was performed using a Ivan protocol. Rest Stress HR Resting HR Supine: 83 bpm Max Heart Rate (APMHR): 164 bpm Resting HR Standin bpm Target HR (85% APMHR): 139 bpm Max HR Achieved: 160 bpm % of APMHR: 98 Recovery HR: 88 bpm HR response to stress: Normal HR response to stress BP Resting BP Supine: 122/70 mmHg Resting BP Standin/68 mmHg Max BP: 168/68 mmHg Recovery BP: 120/78 mmHg BP response to stress: Normal blood pressure response to stress. ECG Resting ECG: Sinus Rhythm Ectopy: None Stress ECG: Sinus Tachycardia ST Change: 0.3-1 ST depression isolated in lead II Lead(s): II Stage: [address] Deviation: 1 mm Arrhythmia: None Recovery ECG: Sinus Rhythm Recovery ST Change: No significant ST segment changes noted Recovery Arrhythmia: None Clinical Reason for Termination: Fatigue Stress Symptoms: Lightheaded, dizziness, slight pinch Exercise duration: 4 min54 sec Highest Stage Reached: Stage 2: 2.5 mph at 12% grade. Exercise capacity: 6.92 METs Angina Score: None Butler Treadmill Score: -1.0 Rate Pressure Product: [id number] Stress ECG Conclusion 1. Resting electrocardiogram was within normal limits 2. Patient exercised on Ivan protocol and completed a workload of 6. 9 2 METS 3. Normal heart rate and blood pressure response to exercise. Patient achieved 98% of predicted hear t rate for age 4. Patient described atypical chest pain (slight pinch) at peak exercise 5. Electrocardiographic portion of the test did not demonstrate myocardial ischemic changes 6. There were no dysrhythmias Butler Treadmill Score is -1.0 which is Moderate risk. Stress Test Summary STAGE Time (mins) Speed (mph) Grade (%) HR BP SpO2 SYMPTOMS METS Supine 83 122/70 Standing 90 130/68 1 3 1.7 10 133 144/76 4.5 2 6 2.5 12 158 98% lightheaded, dizziness, slight pinch 7 1 min recovery 119 184/62 97% 3 min recovery 81 168/68 symptoms resolved 6 min recovery 88 120/78 Pt presented to lab for cardiac stress testing. Prior to test, 10/29/22 patient was seen in the ER fo r chest pain. When asked about her symptoms prior to the test patient stated that since her ER visit she felt as though she can't take a deep breath and her inhalers are not helpful with this. Patient e xercised on the treadmill with no adverse symptoms but did report dizziness and lightheadedness in st age 3, prompting her to ask to stop the test. Patient reported a slight pinch during test. Patient stated that she had no symptoms similar to those that prompted her ER visit during the stress test. D izziness resolved with rest on the stretcher.
== END 2022-11-03 01:12 ==
LOC: DI 00:52
PROVIDERS: PCP Nurse Practitioner; Visit Provider Nurse Practitioner
DX: R07.9 Chest pain, unspecified (principal); Z82.49 Family history of ischemic heart disease and other diseases of the circulatory system
CPT/HCPCS: 93017

== ENCOUNTER 2022-12-02 09:31 | Outpatient (CLI) | payer BC, SELFPAY ==
--- NOTE | 2022-12-02 09:15 | DI.RAD_ITS ---
Exam(s) XR KNEE LT 2V AP,LAT XR STANDING ALIGNMENT EXAM: XR STANDING ALIGNMENT and XR knee LT 2 V CLINICAL HISTORY: L knee pain. TECHNIQUE: 2D digital imaging was performed. Five images were obtained. COMPARISON: CR XR knee LT 3V AP,lat,perry from 06/20/2019 FINDINGS: BONES: The hips are well maintained. In the left knee degenerative changes are present with marked n arrowing of the lateral femoral tibial joint space. There is periarticular spurring involving all 3 joint compartments. There is a small joint effusion. The ankles are well maintained. SOFT TISSUE: Normal. IMPRESSION: Degenerative changes are seen in the left knee. DATA REPOSITORY: RADIATION DOSE DELIVERED:
== END 2022-12-02 09:32 | disposition home or self-care (01) ==
LOC: DIORS 09:31
PROVIDERS: PCP Nurse Practitioner; Referring Provider Nurse Practitioner; Visit Provider Physician Assistant
DX: M17.12 Unilateral primary osteoarthritis, left knee (principal)
CPT/HCPCS: 73560; 77073

== ENCOUNTER 2022-12-15 10:19 | Outpatient (REF) | payer BC, SELFPAY ==
[2022-12-15 11:05] LABS: Bilirubin Negative (Negative); Blood Negative (Negative); Clarity Cloudy (Clear); Glucose Negative (Negative); Ketones Negative (Negative); Leukocyte Esterase Negative (Negative); Nitrite Negative (Negative); Specific Gravity >= 1.030 (1.005-1.025); Urobilinogen 0.2 EU/dL (Up TO 0.2); pH 5.5 (5-8)
== END 2022-12-15 10:20 | disposition home or self-care (01) ==
LOC: LBN 10:19
PROVIDERS: PCP Nurse Practitioner; Visit Provider Nurse Practitioner Gerontology
DX: N39.46 Mixed incontinence (principal); R31.29 Other microscopic hematuria
CPT/HCPCS: 81003

== ENCOUNTER 2023-02-24 01:30 | Outpatient (CLI) | payer BC, SELFPAY ==
[2023-02-24 16:08] LABS: Anion Gap 5.4 mmol/L (3-11); BUN 28 mg/dL (7-18); CO2 31.6 mmol/L (21.0-32.0); CREATININE 0.9 mg/dL (0.55-1.02); Chloride 105 mmol/L (98-107); Estimated GFR 75.03 (mL/min/1.73m2); Glucose 92 mg/dL (74-106); Potassium 3.5 mmol/L (3.5-5.1); Sodium 142 mmol/L (136-145); TSH (W/Ref FT4) 0.57 uIU/mL (0.36-3.74)
== END 2023-02-24 01:31 | disposition home or self-care (01) ==
LOC: LBO 01:30
PROVIDERS: PCP Nurse Practitioner; Referring Provider Nurse Practitioner; Visit Provider Nurse Practitioner
DX: I10 Essential (primary) hypertension (principal); F32.89 Other specified depressive episodes
CPT/HCPCS: 36415; 80048; 84443

== ENCOUNTER 2023-04-27 05:55 | Emergency (ER) | payer BC, SELFPAY ==
--- NOTE | 2023-04-27 06:50 | DI.CT_ITS ---
Exam(s) CT ABDOMEN PELVIS W EXAM: CT ABDOMEN PELVIS W CLINICAL HISTORY: LLQ PAIN. TECHNIQUE: Imaging Protocol: Axial computed tomography images with coronal and sagittal reformatted images were created and reviewed CONTRAST MATERIAL: Intravenous: Omnipaque-350 100cc Oral: None COMPARISON: CT CT THORAX ABD/PEL CTA from 10/29/2022 FINDINGS: VISUALIZED LUNG BASES: No nodules nor pleural effusions evident. ABDOMEN: There is no ascites. LIVER: There are no focal hepatic lesions evident. No grossly dilated intrahepatic ducts. GALLBLADDER/BILIARY: Gallbladder is surgically absent. CBD is not dilated. PANCREAS: No evidence of pancreatic mass nor dilatation of the pancreatic duct. SPLEEN: Spleen is not enlarged. No obvious intrasplenic lesions. Splenic and portal veins are paten t. ADRENALS: There are no significant adrenal masses. KIDNEYS:No cysts evident. No solid renal masses. No calculi nor hydronephrosis.. ABDOMINAL AORTA: Abdominal aorta is not enlarged. LYMPH NODES:There is no retroperitoneal nor paraaortic adenopathy. ABDOMINAL WALL: No evidence of significant anterior abdominal wall nor inguinal hernia. GI: There is no evidence of bowel obstruction, free air, nor abscess. PELVIS: GI: Appendix appears to be surgically absent.No evidence of sigmoid diverticulitis. LYMPH NODES: There is no intrapelvic nor inguinal adenopathy. REPRODUCTIVE: Uterus is surgically absent. There are no abnormal adnexal masses. No free fluid in t he pelvis. URINARY BLADDER: No calculi nor obvious masses evident OSSEOUS: No fractures and no significant osseous lesions. Sclerotic bone island is noted in left sahra e of the sacrum. Degenerative anterolisthesis L4 upon L5 due to facet arthropathy. No significant d isc space narrowing at this level. No lytic nor blastic lesions identified in the skeleton. IMPRESSION: 1. There is evidence of previous cholecystectomy, appendectomy, and hysterectomy. 2. No evidence of bowel obstruction, free air, nor abscess. No ascites. 3. No significant acute findings in the abdomen and pelvis. RADIATION DOSE DELIVERED: 1,384.26mGy.cm Total DLP DATA REPOSITORY: All CT scans at this facility are submitted to the National Radiology Data Registry (NRDR) Dose Index Registry (DIR) with the [employer] (ACR). RADIATION OPTIMIZATION: All CT scans at this facility use at least one of these dose optimization te chniques: automated exposure control; mA and/or kV adjustment per patient size (includes targeted exa ms where dose is matched to clinical indication); or iterative reconstruction.
--- NOTE | 2023-04-27 08:54 | W.EDPROG ---
Date of service: 04/27/23 Time of Service: 08:54 Medical Decision Making Patient resting comfortably, no acute distress, labs and images unremarkable; improved symptoms, hemodynamically stable; home care instructions and return precautions given Discharge Plan Disposition Patient Disposition: Home Discharge Details Clinical Impression: Abdominal pain Primary Care Provider: Liyah Flynn ED Provider: Devon Patel Home Meds and New Rx's Prescriptions: No Action trazodone 50 mg tablet See Rx Instructions PO QHS PRN (Reason: sleep) Qty: 60 3RF Rx Instructions: 1-2 tabs orally every day at bedtime PRN; hydrochlorothiazide 12.5 mg tablet 12.5 mg PO DAILY Qty: 90 1RF sertraline 100 mg tablet 100 mg PO DAILY Qty: 90 3RF valsartan 80 mg tablet 80 mg PO DAILY Qty: 90 3RF levalbuterol tartrate [Xopenex HFA] 45 mcg/actuation HFA aerosol inhaler 2 puff Inhalation Q6H PRN Qty: 1 12RF Rx Instructions: for cough & SOB acetaminophen [Tylenol Arthritis Pain] 650 mg tablet extended release 1,300 mg PO Q4H PRN PRN multivitamin [Daily Vitamin] 1 EACH tablet 1 ea PO DAILY calcium carbonate-vitamin D3 1 EACH tablet 1 ea PO DAILY oxybutynin chloride 5 mg tablet extended release 24hr 5 mg PO DAILY Qty: 90 0RF lorazepam 0.5 mg tablet 0.5 mg PO DAILY PRN (Reason: anxiety) Qty: 14 0RF meloxicam 15 mg tablet 15 mg PO DAILY Qty: 30 2RF Discharge Instructions Instructions: Abdominal Pain (ED) Additional Instructions: Please followup with your primary care physician; return to the emergency department for worsening symptoms
[2023-04-27 09:00] VITALS: BP 157/81; PULSE 99; RESP 18; TEMP 37.1; O2SAT 98
[2023-04-27 09:03] LABS: Albumin 4.2 g/dL (3.4-5.0); Alkaline Phosphatase 103 U/L (46-116); BUN 22 mg/dL (7-18); CREATININE 0.7 mg/dL (0.55-1.02); Calcium 8.9 mg/dL (8.5-10.1); Estimated GFR 100.81 (mL/min/1.73m2); Glucose 159 mg/dL (74-106); Sodium 139 mmol/L (136-145); Total Protein 8.8 g/dL (6.4-8.2)
[2023-04-27 09:04] LABS: ALT 35 U/L (14-59); AST 27 U/L (15-37); Chloride 102 mmol/L (98-107); WBC 9.65 10^3/uL (4.4-10.8)
[2023-04-27 09:05] LABS: Absolute Basophil Count 0.03 10^3/uL (0.0-0.2); Absolute Lymphocyte Count 0.38 10^3/uL (1.2-3.4); Absolute Monocyte Count 0.57 10^3/uL (0.1-0.8); Absolute Neutrophil Count 8.44 10^3/uL (1.2-6.7); Basophils % 0.3; Eosinophils % 2.1; HCT 43.5 % (36.0-46.0); HGB 14.8 g/dL (11.2-15.7); Immature Grans % 0.3; Lymphocytes % 3.9; MCV 85 fL (80-95); MPV 9.7 fL (8.0-11.0); Monocytes % 5.9; Neutrophils % 87.5; Platelet Count 235 10^3/uL (130-400); RDW 12.6 % (11.7-14.6); RDW-SD 39.1 fL
[2023-04-27 09:06] LABS: Abs Immature Grans 0.03 10^3/uL (0.0-0.06)
[2023-04-27] MEDS: Omnipaque 350 MG/ML 100 ML BTL IJ (09:08)
[2023-04-27 09:11] LABS: Bilirubin Negative (Negative); Blood Trace-intact (Negative); Clarity Clear (Clear); Glucose Negative (Negative); Ketones Negative (Negative); Leukocyte Esterase Negative (Negative); Nitrite Negative (Negative); Specific Gravity <= 1.005 (1.005-1.025); Urobilinogen 0.2 mg/dL (Up to 0.2)
[2023-04-27 09:12] LABS: Bacteria Rare HPF (Negative); Epithelial Cells Rare HPF (Negative); RBC 0-2 HPF (0-2); WBC Negative HPF (0-5)
[2023-04-27 09:13] LABS: C & S Indicated? No; Casts Negative LPF (Negative); Crystals Negative HPF (Negative); Mucus Trace (Negative)
== END 2023-04-27 09:14 | disposition home or self-care (01) ==
LOC: ER 09:12
PROVIDERS: Emergency Medicine; Emergency Provider Emergency Medicine; PCP Nurse Practitioner
DX: R11.2 Nausea with vomiting, unspecified (principal); R19.7 Diarrhea, unspecified; R10.9 Unspecified abdominal pain
CPT/HCPCS: 80053; 96361; 96374; 96375; 96376; 99285; 74177; 81003; 81015; 85025; 99283; J1170; J3490

== ENCOUNTER 2024-02-21 16:26 | Observation (INO) | payer BC, SELFPAY ==
[2024-02-21] VITALS (43 sets, daily range): BP systolic 119–179; BP diastolic 43–91; PULSE 62–97; RESP 9–22; TEMP 36.2–36.6; O2SAT 96–99
--- NOTE | 2024-02-21 16:30 | RT.EKG_ITS ---
APPROVED REPORT Exam: Resting ECG Reason for Exam: Chest Pain Patient Location: E HR:69 bpm ECG Measurements Heart Rate 69 AXIS AR 155 P 40 QRSd 80 QRS 21 QT 383 T 8 QTc 412 Conclusion Sinus rhythm...normal P axis, V-rate 60- 99 Normal Electrocardiogram
--- NOTE | 2024-02-21 16:56 | ED.GENADUL_ITS ---
Discharge Plan Disposition Patient Disposition: Admit to [facility] Condition: Good Discharge Details Clinical Impression: Atypical chest pain Admit Date/Time: 02/21/24 20:59 Admit Provider: Junito Sinha Attending Provider: Junito Sinha Primary Care Provider: Liyah Flynn ED Provider: Jun Constantino Discharge Data Discharge Date/Time-TO BE ENTERED AT DEPARTURE: 02/21/24 21:54 HPI General Date/Time Provider Initiated Documentation: 02/21/24 16:54 . Limitations to Documentation: no limitations . Information obtained by: patient and RN notes reviewed . HPI Narrative: Patient presents to ED with onset of chest pain while at work. Pain radiated into the left shoulder. It is not pleuritic in nature. It is radiating into the back to some degree now. No diaphoresis, nausea, shortness of breath. Denies any recent illnesses and has no fever, cough, vomiting or diarrhea. Denies any abdominal pain. Had something a little similar as this a couple years ago with negative workup including stress testing. Has not had recurrent symptoms until today. Is still experiencing chest pain on arrival to ED. Related Data Home Medications Medication Instructions Recorded Confirmed multivitamin (Daily Vitamin tablet) 1 ea PO DAILY 08/11/14 02/21/24 calcium carbonate 600 mg-vitamin 1 ea PO DAILY 10/11/16 02/21/24 D3 5 mcg (200 unit) tablet levalbuterol tartrate 45 2 puff inhalation Q6H PRN ##1 09/19/22 02/21/24 mcg/actuation aerosol inhaler (Xopenex HFA) acetaminophen 650 mg 1,300 mg PO Q4H PRN PRN 10/31/22 02/21/24 tablet,extended release (Tylenol Arthritis Pain) hydrochlorothiazide 12.5 mg tablet 12.5 mg PO DAILY #90 tabs 01/23/23 02/21/24 valsartan 80 mg tablet 80 mg PO DAILY #90 tabs 02/23/23 02/21/24 oxybutynin chloride 5 mg 5 mg PO DAILY #90 tabs 03/15/23 02/21/24 tablet,extended release 24 hr Previous Rx's Medication Instructions Recorded levalbuterol tartrate 45 2 puff inhalation Q6H PRN ##1 09/19/22 mcg/actuation aerosol inhaler (Xopenex HFA) hydrochlorothiazide 12.5 mg tablet 12.5 mg PO DAILY #90 tabs 01/23/23 valsartan 80 mg tablet 80 mg PO DAILY #90 tabs 02/23/23 oxybutynin chloride 5 mg 5 mg PO DAILY #90 tabs 03/15/23 tablet,extended release 24 hr Allergies Allergy/AdvReac Type Severity Reaction Status Date / Time codeine Allergy Severe ANAPHALAXSI Verified 02/21/24 16:34 S Sulfa (Sulfonamide Allergy Severe FACIAL Verified 02/21/24 16:34 Antibiotics) SWELLING amoxicillin trihydrate Allergy Intermediate Bodywide Verified 02/21/24 16:34 [From Augmentin] pruritic rash potassium clavulanate Allergy Intermediate Bodywide Verified 02/21/24 16:34 [From Augmentin] pruritic rash erythromycin base AdvReac Intermediate GI DISTRESS Verified 02/21/24 16:34 pregabalin [From Lyrica] AdvReac Intermediate HEADACHE Verified 02/21/24 16:34 carisoprodol [From Soma] AdvReac Mild Headache & Verified 02/21/24 16:34 Spacey chlorthalidone AdvReac Mild HYPOKALEMIA Verified 02/21/24 16:34 General Stated Complaint: Chest Pain VERÓNICA: 2 Review of Systems Narrative: per HPI Exam Narrative Exam Narrative: Const: WDWN female in NAD. VS per triage. HEENT: NC/AT. Normal facial exam. Eyes: Normal conjunctiva and sclera. Neck: Supple. Trachea midline. Lungs: Normal respiratory effort. Lungs are clear. No chest wall tenderness. Cor: RRR without murmur. Good radial pulses. GI: Soft. NT/ND. Neuro: A+O x 3. Normal speech, mentation, gait. Cranial nerves II - XII grossly intact. No gross motor or sensory deficit. Ext: No C/C/E. Course Vital Signs Vital signs: Vital Signs Pulse 77 02/21/24 16:30 Respiratory Rate 18 02/21/24 16:30 Blood Pressure 157/91 H 02/21/24 16:30 Pulse Oximetry 99 02/21/24 16:30 Pulse 77 02/21/24 16:30 Respiratory Rate 18 02/21/24 16:44 Respiratory Effort Normal, Non-Labored 02/21/24 16:44 Respiratory Depth Normal 02/21/24 16:44 Respiratory Pattern Normal 02/21/24 16:44 Blood Pressure 157/91 H 02/21/24 16:30 Blood Pressure Position Sitting 02/21/24 16:30 Pulse Oximetry 99 02/21/24 16:30 Oxygen Delivery Method Room Air 02/21/24 16:30 Oxygen Flow Rate 0 02/21/24 16:30 Pain Level 8 02/21/24 16:30 Medical Decision Making Patient presenting to ED with onset of chest pain with radiation to the left shoulder and into the back. Pain is not reproducible and is not pleuritic. Denies any shortness of breath. Her EKG from triage is sinus rhythm, normal ax is and intervals, normal ST-T segments. IV established laboratory studies sent including D-dimer. Nitroglycerin and aspirin ordered. Chest imaging to be determined by D-dimer result. Patient reports chest pain improved after nitroglycerin but developed significant back pain between her scapula. Still no shortness of breath but given possibility of aortic dissection with complaint of back pain CT chest ordered. She was given a dose of morphine for her pain. Laboratory studies reveal a normal CBC. D-dimer was elevated to 639. Troponin was normal. Chemistries, LFTs normal. Pain improved with morphine. CT of chest is negative for aortic dissection or pulmonary embolus. Patient continues to have episodes of pain in her chest radiating to her back. Seems atypical for ACS and she did have a normal exercise stress test in October 2022 but given persistent episodes of pain will need to admit for further evaluation. A repeat EKG and troponin at 3 hours in the ED remain normal and unchanged. Case discussed with hospitalist. Accepts patient for admission for monitoring overnight and stress testing tomorrow. Patient aware of plan and in agreement. Medical Records Medical records reviewed: Yes I reviewed the patient's medical records. Lab Data Lab results reviewed: Yes I reviewed the patient's lab results. ECG Data Attestation: I personally reviewed and interpreted this ECG (s) as follows: Prior ECG tracings: available for review Quality:SDOH Health Related Social Needs: No Data to Display PFSH All Active Problems (Updated 02/21/24 @ 23:09 by Jun Constantino MD) Atypical chest pain (Acute) Chest pain (Acute) Primary osteoarthritis of left knee (Acute) Depressive disorder (Chronic 11/17/11) Eczema of external ear (Acute) Left knee pain (Chronic) Obesity (Acute 07/05/12) Nasal septal perforation (Acute 09/18/17) Laryngoscopy w/ bx Dr. Paulino Marino 09/2017 acute and chronic inflammation, ulceration and subepithelial fibrosis Mixed incontinence (Acute 11/17/11) Kegel's; since TAMMI and bladder repair Insomnia (Acute 05/21/18) Family history of diabetes mellitus (Acute 11/17/11) Degenerative joint disease (DJD) of lumbar spine (Acute 07/09/14) MRI L4-L5 disc bulge Neurosurg consult 06/2014 Pain Clinic [facility] Dr. Auguste; epidural steroid injection 09/2014 Acute dermatitis (Acute 06/26/13) EARS Medical History Asthma (11/17/11) Albuterol once per month Essential hypertension (04/16/13) dx 04/2013 Primary fibromyalgia syndrome (11/17/11) 08/20; consults with Dr. Thomas [facility] Rheum Anxiety Surgical History epidural steroid injection (10/08/14) Dr Powell Tubal Ligation, Laparoscopic 1990 TAMMI/BSO 1992, removed due to ruptured cysts Left medial tarsal tunnel surgery, Anjana, 2008 LARYNGOSCOPY W/ BX L forearm fracture, 2010 Cholecystectomy 1991 Bladder Surgery Sling to help incontinence, 1992 Appendectomy 1999 Family History Maternal Aunt No problems noted. Paternal Uncle Alcohol use disorder Asthma Paternal Aunt Alcohol use disorder Asthma Breast cancer Maternal Uncle Alcohol use disorder Stroke Father Asthma Cancer Prostate, bladder Depression Diabetes Heart disease Hypertension Prostate cancer Paternal Grandmother Asthma Paternal Cousin Asthma Mother Cancer throat Depression Diabetes Heart disease Hyperlipidemia Hypertension Stroke Brother Cancer prostate, bladder, rectal Brother AIDS Prostate cancer Social History Smoking/Tobacco Use Status: Never Second Hand Exposure: Yes Smoking risk assessment performed?: Yes Alcohol Intake: current Alcohol Intake frequency: a few times a month Drug use: Never Substance use type: does not use Adopted: No Caregiver/Support person: No Foster care: No Household members: significant other Housing: house Number of Children: 2 number of grandchildren: 9 Communication Needs: Corrective Lenses Education Level: college 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: Associates Do you need help understanding health information?: Never current occupation: [employer] Pets and animals: No Sexually active: Yes Do you think of yourself as: straight/heterosexual Current gender identity: female What is your relationship status?: living with partner How often do you talk on the phone with friends or family?: three or more times per week How often do you get together with friends or relatives?: once per week Do you belong to any clubs or organized social groups?: no Panel score (0-1 are the most socially isolated patients): 2 What type of physical activity do you participate in: walking and other Details: active at work Elina/Pentecostalism: Episcopalian Special elina needs: No Seatbelt use: sometimes Helmet use: Yes Helmet use: always Drive intox or ride w/intox milk wagon driver: No Do you feel safe at home: Yes Do you feel safe in your relationship?: Yes
[2024-02-21] MEDS: Aspirin 81 MG CHEW 324 MG CH (17:04)
[2024-02-21 17:06] LABS: Abs Immature Grans 0.01 10^3/uL (0.0-0.06); Absolute Basophil Count 0.03 10^3/uL (0.0-0.2); Absolute Eosinophil Count 0.28 10^3/uL (0.0-0.7); Absolute Lymphocyte Count 2.12 10^3/uL (1.2-3.4); Absolute Monocyte Count 0.46 10^3/uL (0.1-0.8); Basophils % 0.6; Eosinophils % 5.8; HCT 42.6 % (36.0-46.0); HGB 14.2 g/dL (11.2-15.7); Immature Grans % 0.2; Lymphocytes % 44.2; MCH 28.6 pg (27.0-33.0); MCHC 33.3 % (32.0-36.0); MCV 86 fL (80-95); MPV 9.8 fL (8.0-11.0); Monocytes % 9.6; Neutrophils % 39.6; Platelet Count 235 10^3/uL (130-400); RBC 4.96 10^6/uL (3.93-5.22); RDW 12.8 % (11.7-14.6); RDW-SD 39.6 fL
[2024-02-21] MEDS: nitroGLYcerin 0.4 MG TAB SL ×3 (17:06→17:29)
[2024-02-21 17:22] LABS: ALT 49 U/L (14-59); AST 22 U/L (15-37); Albumin 3.8 g/dL (3.4-5.0); Alkaline Phosphatase 120 U/L (46-116); BUN 16 mg/dL (7-18); Bilirubin, Total 0.6 mg/dL (0.2-1.0); CREATININE 0.7 mg/dL (0.55-1.02); Calcium 8.5 mg/dL (8.5-10.1); Chloride 103 mmol/L (98-107); Estimated GFR 100.81 (mL/min/1.73m2); Glucose 90 mg/dL (74-106); Magnesium 2.2 mg/dL (1.8-2.4); Potassium 4.1 mmol/L (3.5-5.1); Sodium 139 mmol/L (136-145); Troponin I < 50 ng/L (< or =60)
--- NOTE | 2024-02-21 17:30 | DI.CT_ITS ---
Exam(s) CT THORAX CTA EXAM: CT THORAX CTA CLINICAL HISTORY: CP/Back Pain. TECHNIQUE: Imaging Protocol: Axial CT angiography was performed with multi-slice acquisition and mu lti-planar and/or 3D reconstructions. CONTRAST MATERIAL: Intravenous: Omnipaque 350 contrast volume:100 mL COMPARISON: CT CT THORAX ABD/PEL CTA from 10/29/[address] ABDOMEN PELVIS W from 04/27/2023 FINDINGS: Tracheobronchial tree: Patent where visualized. Pulmonary parenchyma: No consolidation or dominant measurable mass. No architectural distortion. Pulmonary Arteries: No evidence of filling defect to suggest pulmonary emboli. Mediastinum and Darlene: No dominant adenopathy or fluid collection. The esophagus is unremarkable. Visualized thyroid gland: There is a 7 mm nodule in the right lobe of the thyroid gland. No follow-u p is recommended. Pleura: No effusion or pneumothorax. Heart: The heart is not dilated. Coronary artery calcifications are present. No pericardial effusion . Aorta: Thoracic aorta non-dilated. No evidence of dissection. Upper abdomen: Status post cholecystectomy. Soft tissues: Unremarkable. Bones: Within normal limits for the patient's age. IMPRESSION: 1. No evidence of pulmonary embolism, thoracic aortic dissection or aneurysm. 2. No acute pulmonary process. RADIATION DOSE DELIVERED: Total DLP Total DLP DATA REPOSITORY: All CT scans at this facility are submitted to the National Radiology Data Registry (NRDR) Dose Index Registry (DIR) with the [employer] (ACR). RADIATION OPTIMIZATION: All CT scans at this facility use at least one of these dose optimization te chniques: automated exposure control; mA and/or kV adjustment per patient size (includes targeted exa ms where dose is matched to clinical indication); or iterative reconstruction.
[2024-02-21 17:36] LABS: D-Dimer 639 ng/mlFEU (<500)
[2024-02-21] MEDS: MORPHine 4 MG/ML SYR IVP (18:24)
[2024-02-21] MEDS: Omnipaque 350 MG/ML 100 ML BTL IJ (18:44)
[2024-02-21] MEDS: Normal Saline - Diluent 50 ML VIAL IJ (18:46)
--- NOTE | 2024-02-21 19:19 | DI.VRAD_ITS ---
PROCEDURE INFORMATION: Exam: CTA Chest With Contrast Exam date and time: 02/21/2024 6:47 PM Age: 58 years old Clinical indication: Other: Cp/back pain TECHNIQUE: Imaging protocol: Computed tomographic angiography of the chest with contrast. Exam focused on the arteries. 3D rendering (Not supervised by radiologist): MIP and/or 3D reconstructed images were created by the technologist. Contrast material: OMNI 350; Contrast volume: 100 ml; Contrast route: INTRAVENOUS (IV); COMPARISON: CT THORAX ABD/PEL CTA 10/29/2022 7:02 PM FINDINGS: Pulmonary arteries: Normal. No pulmonary emboli. Aorta: Unremarkable. No aortic aneurysm. No aortic dissection. Lungs: Unremarkable. No consolidation. No masses. Pleural spaces: Unremarkable. No pneumothorax. No pleural effusion. Heart: Unremarkable. No cardiomegaly. No pericardial effusion. Lymph nodes: Unremarkable. No enlarged lymph nodes. Bones/joints: Unremarkable. No acute fracture. Soft tissues: Hypodense lesion right lobe of the thyroid measuring 6 mm IMPRESSION: No pulmonary emboli observed Subcentimeter right-sided thyroid nodule Dictated and Authenticated by: Jose Dhaliwal MD. Ordering:CARROLL Barahona MD
--- NOTE | 2024-02-21 19:45 | RT.EKG_ITS ---
APPROVED REPORT Exam: Resting ECG Reason for Exam: Patient Location: E HR:65 bpm ECG Measurements Heart Rate 65 AXIS [place] 148 P 25 QRSd 82 QRS 18 QT 406 T 7 QTc 423 Conclusion Sinus rhythm...normal P axis, V-rate 60- 99 Normal Electrocardiogram There are no significant changes compared to prior EKG performed on 02/21/2024 at 16:35.
[2024-02-21 20:31] LABS: Troponin I < 50 ng/L (< or =60)
[2024-02-21] MEDS: Ketorolac 15 MG/ML VIAL IVP (20:51)
--- NOTE | 2024-02-21 21:27 | W.PM.HP.N ---
Date of service: 02/21/24 Time of Service: 21:27 Assessment and Plan Assessment and plan (1) Chest pain: Status: Acute Assessment and plan: Atypical CP. Normal EKG with pain, and negative trops with this duration argue against ACS, along with negative w/u for similar in 2021 -- but given ongoing symptoms and no definite diagnosis at this point I think it not unreasonable to admit, complete troponin series, and stress in AM. I think more likely diagnoses would be musculoskeletal syndrome or perhaps a variant of cervical neuralgia. I would though note report of fluttering in chest at outset of spell, but telemetry has been negative while here. History of Present Illness History of Present Illness Chief Complaint: CP Narrative: 58 female with h/o HTN. In 11/03 seen in ER for episode of atypical CP, eventuating in negative stress test. Today, while at rest, noted a fluttering feeling in chest, thinks pulse was irregular, at rate of approx 120. Lasted for approx 20-30 minutes. Thereafter developed left upper chest pain, described variably as hot, crushing, pressure or stabbing. Pain has radiated to left shoulder, arm and scapula. Pain has been waxing and waning , and present at this point for some five hours. Work up in ER of note for normal EKG x2, negative chest CTA and negative trop x2. Patient was given SL NTG with partial relief, and has also been given MS 4 and just now dose of Toradol. States pain is still present but very mild. Notably she states that todays episode is similar to that in 2021, except that that one did not persist as it has today (also, that the radiation in that earlier episode was to the right not the left). Review of Systems Narrative: per HPI PFSH All Active Problems (Updated 02/21/24 @ 21:36 by Junito Sinha MD) Chest pain (Acute) Primary osteoarthritis of left knee (Acute) Depressive disorder (Chronic 11/17/11) Eczema of external ear (Acute) Left knee pain (Chronic) Anxiety (Chronic) Primary fibromyalgia syndrome (Acute 11/17/11) 08/20; [place]. [place] [facility] [place] Obesity (Acute 07/05/12) Nasal septal perforation (Acute 09/18/17) Laryngoscopy w/ bx Dr. Paulino Marino 09/2017 acute and chronic inflammation, ulceration and subepithelial fibrosis Mixed incontinence (Acute 11/17/11) Kegel's; since TAMMI and bladder repair Insomnia (Acute 05/21/18) Family history of diabetes mellitus (Acute 11/17/11) Essential hypertension (Acute 04/16/13) dx 04/2013 Degenerative joint disease (DJD) of lumbar spine (Acute 07/09/14) MRI L4-L5 disc bulge Neurosurg consult 06/2014 [facility] Clinic [facility] Dr. Auguste; epidural steroid injection 09/2014 Asthma (Acute 11/17/11) Albuterol once per month Acute dermatitis (Acute 06/26/13) EARS Surgical History epidural steroid injection (10/08/14) Dr Powell Tubal Ligation, Laparoscopic 1990 TAMMI/BSO 1992, removed due to ruptured cysts Left medial tarsal tunnel surgery, [facility], 2008 LARYNGOSCOPY W/ BX L forearm fracture, 2010 Vaginal hysterectomy Total hysterectomy, 1992 Cholecystectomy 1991 Bladder Surgery Sling to help incontinence, 1992 Appendectomy 1999 Family History Maternal Aunt No problems noted. Paternal Uncle Alcohol use disorder Asthma Paternal Aunt Alcohol use disorder Asthma Breast cancer Maternal Uncle Alcohol use disorder Stroke Father Asthma Cancer Prostate, bladder Depression Diabetes Heart disease Hypertension Prostate cancer Paternal Grandmother Asthma Paternal Cousin Asthma Mother Cancer throat Depression Diabetes Heart disease Hyperlipidemia Hypertension Stroke Brother Cancer prostate, bladder, rectal Brother AIDS Prostate cancer Social History Smoking/Tobacco Use Status: Never Second Hand Exposure: Yes Smoking risk assessment performed?: Yes Alcohol Intake: current Alcohol Intake frequency: a few times a month Drug use: Never Substance use type: does not use Adopted: No Caregiver/Support person: No Foster care: No Household members: significant other Housing: house Number of Children: 2 number of grandchildren: 9 Communication Needs: Corrective Lenses Education Level: college Details: Associates Do you need help understanding health information?: Never current occupation: [employer] Pets and animals: No Sexually active: Yes Do you think of yourself as: straight/heterosexual Current gender identity: female What is your relationship status?: living with partner How often do you talk on the phone with friends or family?: three or more times per week How often do you get together with friends or relatives?: once per week Do you belong to any clubs or organized social groups?: no Panel score (0-1 are the most socially isolated patients): 2 What type of physical activity do you participate in: walking and other Details: active at work Elina/Holiness: Restorationist Special elina needs: No Seatbelt use: sometimes Helmet use: Yes Helmet use: always Drive intox or ride w/intox production truck driver: No Do you feel safe at home: Yes Do you feel safe in your relationship?: Yes Meds Allergies and Home Medications Allergies Allergy/AdvReac Type Severity Reaction Status Date / Time codeine Allergy Severe ANAPHALAXSI Verified 02/21/24 16:34 S Sulfa (Sulfonamide Allergy Severe FACIAL Verified 02/21/24 16:34 Antibiotics) SWELLING amoxicillin trihydrate Allergy Intermediate Bodywide Verified 02/21/24 16:34 [From Augmentin] pruritic rash potassium clavulanate Allergy Intermediate Bodywide Verified 02/21/24 16:34 [From Augmentin] pruritic rash erythromycin base AdvReac Intermediate GI DISTRESS Verified 02/21/24 16:34 pregabalin [From Lyrica] AdvReac Intermediate HEADACHE Verified 02/21/24 16:34 carisoprodol [From Soma] AdvReac Mild Headache & Verified 02/21/24 16:34 Spacey chlorthalidone AdvReac Mild HYPOKALEMIA Verified 02/21/24 16:34 Home Medications Medication Instructions Recorded Confirmed Type multivitamin (Daily Vitamin tablet) 1 ea PO DAILY 08/11/14 02/21/24 History calcium carbonate 600 mg-vitamin 1 ea PO DAILY 10/11/16 02/21/24 History D3 5 mcg (200 unit) tablet levalbuterol tartrate 45 2 puff inhalation Q6H PRN ##1 09/19/22 02/21/24 Rx mcg/actuation aerosol inhaler (Xopenex HFA) acetaminophen 650 mg 1,300 mg PO Q4H PRN PRN 10/31/22 02/21/24 History tablet,extended release (Tylenol Arthritis Pain) hydrochlorothiazide 12.5 mg tablet 12.5 mg PO DAILY #90 tabs 01/23/23 02/21/24 Rx valsartan 80 mg tablet 80 mg PO DAILY #90 tabs 02/23/23 02/21/24 Rx oxybutynin chloride 5 mg 5 mg PO DAILY #90 tabs 03/15/23 02/21/24 Rx tablet,extended release 24 hr Exam Narrative Exam Narrative: 179/87, 70, 36.6, 20, 96% RA. HEENT atraumatic; neck supple, mild left paracervical; tenderness; lungs clear; heart RRR; chest wall non-tender; abdomen soft and NT; extremities w/o edema, pulse 2+/=; neuro Ox3, lucid, moves all 4s Results Labs 02/21/24 16:50 02/21/24 16:50 Labs: Laboratory Results - last 24 hr 02/21/24 02/21/24 16:50 20:07 WBC 4.80 RBC 4.96 Hgb 14.2 Hct 42.6 MCV 86 MCH 28.6 MCHC 33.3 RDW 12.8 Plt Count 235 MPV 9.8 Immature Gran % 0.2 Neutrophils % 39.6 Lymphocytes % 44.2 Monocytes % 9.6 Eosinophils % 5.8 Basophils % 0.6 Nucleated RBC % 0.0 Absolute Neutrophils 1.90 Absolute Lymphocytes 2.12 Absolute Monocytes 0.46 Absolute Eosinophils 0.28 Absolute Basophils 0.03 D-Dimer 639 H Sodium 139 Potassium 4.1 Chloride 103 Carbon Dioxide 28.0 Anion Gap 8.0 BUN 16 Creatinine 0.7 Est GFR (CKD-EPI 2020) 100.81 Glucose 90 Calcium 8.5 Magnesium 2.2 Total Bilirubin 0.6 AST 22 ALT 49 Alkaline Phosphatase 120 H Troponin I < 50 < 50 Total Protein 8.0 Albumin 3.8 Last Vital Signs Temp 36.6 C 02/21/24 17:12 Pulse 70 02/21/24 21:01 Resp 20 02/21/24 21:10 BP 179/87 H 02/21/24 21:01 Pulse Ox 96 02/21/24 17:12 Time Spent Time spent with Patient: 40-54 minutes Time was spent: preparing to see the patient(eg.review tests), obtaining and/or reviewing separately otained hiistory, ordering medications,tests, procedures, referring, communicating with other health caregivers non medical and indepentently interpreting results
[2024-02-21 23:56] LABS: Troponin I < 50 ng/L (< or =60)
--- NOTE | 2024-02-22 | ETT_ITS ---
APPROVED REPORT Exam: Exercise Treadmill Patient Location: In-Patient Room/Bed: Stress Nurse: Suzy Ash RN Ordering Provider:SHAQ MEDELLIN, Contact Number: BMI: 37.07 Baseline Rhythm: Sinus Rhythm Indications: Chest pain, Medical History Medical History: OA, depression, anxiety, fibromyalgia, DJD, asthma Cardiac Medications: Hydrochlorothiazide, valsartan (patient has not taken any medications x3-4 month s) Allergies: Codeine, sulfa, amoxicillin, potassium clavulanate, erythromycin, pregabalin, carisoprodol , chlorthalidone Cardiac Risk Factors: HTN, Asthma, obesity Previous Cardiac Procedures: None Pretest Chest Pain Characteristics: None Exercise History: Indeterminate Physical Disabilities: L knee Lung Sounds: Clear to auscultation Heart Sounds: Regular Stress Test Details Test: Exercise stress testing was performed using a Ivan protocol. Rest Stress HR Resting HR Supine: 77 bpm Max Heart Rate (APMHR): 163 bpm Resting HR Standin bpm Target HR (85% APMHR): 139 bpm Max HR Achieved: 143 bpm % of APMHR: 88 Recovery HR: 88 bpm HR response to stress: Normal HR response to stress BP Resting BP Supine: 128/70 mmHg Resting BP Standin/88 mmHg Max BP: 174/78 mmHg Recovery BP: 140/88 mmHg BP response to stress: Normal blood pressure response to stress. ECG Resting ECG: Sinus Rhythm Ectopy: None Stress ECG: Sinus Tachycardia ST Change: No significant ST segment changes noted Arrhythmia: None Recovery ECG: Sinus Rhythm Recovery ST Change: No significant ST segment changes noted Recovery Arrhythmia: None Clinical Reason for Termination: Target HR Achieved, Fatigue Stress Symptoms: 3-4/10 chest pressure, fatigue Exercise duration: 04 min19 sec Highest Stage Reached: Stage 2: 2.5 mph at 12% grade. Exercise capacity: 6.22 METs Angina Score: Non-Limiting Rate Pressure Product: [id number] Stress ECG Conclusion 1. Resting EKG was normal 2. Patient exercised on the Ivan protocol, completed a workload of 6.2 METS 3. Normal heart rate and blood pressure response to exercise. The patient achieved 88% of predicted heart rate for age 4. There was no electrocardiographic evidence of myocardial ischemia 5. There were no dysrhythmias
[2024-02-22 04:23] VITALS: BP 142/83; PULSE 69; RESP 17; TEMP 36.5; O2SAT 97
[2024-02-22] MEDS: Normal Saline Flush 10 ML SYR IVP ×2 (05:46→07:55)
[2024-02-22 09:41] VITALS: BP 141/87; PULSE 77; RESP 16; TEMP 36; O2SAT 97
--- NOTE | 2024-02-22 10:25 | PDOC.CMIN ---
Date of service: 02/22/24 Time of Service: 10:25 Care Management Initial Assmt Initial Assessment REASON FOR HOSPITALIZATION:: Atypical Chest Pain CODE STATUS:: Full Code PFSH All Active Problems (Updated 02/21/24 @ 23:09 by Jun Constantino MD) Atypical chest pain (Acute) Chest pain (Acute) Primary osteoarthritis of left knee (Acute) Depressive disorder (Chronic 11/17/11) Eczema of external ear (Acute) Left knee pain (Chronic) Obesity (Acute 07/05/12) Nasal septal perforation (Acute 09/18/17) Laryngoscopy w/ bx Dr. Paulino Marino 09/2017 acute and chronic inflammation, ulceration and subepithelial fibrosis Mixed incontinence (Acute 11/17/11) Kegel's; since TAMMI and bladder repair Insomnia (Acute 05/21/18) Family history of diabetes mellitus (Acute 11/17/11) Degenerative joint disease (DJD) of lumbar spine (Acute 07/09/14) MRI L4-L5 disc bulge Neurosurg consult 06/2014 Pain Clinic [facility] Dr. Auguste; epidural steroid injection 09/2014 Acute dermatitis (Acute 06/26/13) EARS Medical History Asthma (11/17/11) Albuterol once per month Essential hypertension (04/16/13) dx 04/2013 Primary fibromyalgia syndrome (11/17/11) 08/20; consults with Dr. Thomas [facility] [place]um Anxiety Surgical History epidural steroid injection (10/08/14) Dr Powell Tubal Ligation, Laparoscopic 1990 TAMMI/BSO 1992, removed due to ruptured cysts Left medial tarsal tunnel surgery, [place], 2008 LARYNGOSCOPY W/ BX L forearm fracture, 2010 Cholecystectomy 1991 Bladder Surgery Sling to help incontinence, 1992 Appendectomy 1999 Family History Maternal Aunt No problems noted. Paternal Uncle Alcohol use disorder Asthma Paternal Aunt Alcohol use disorder Asthma Breast cancer Maternal Uncle Alcohol use disorder Stroke Father Asthma Cancer Prostate, bladder Depression Diabetes Heart disease Hypertension Prostate cancer Paternal Grandmother Asthma Paternal Cousin Asthma Mother Cancer throat Depression Diabetes Heart disease Hyperlipidemia Hypertension Stroke Brother Cancer prostate, bladder, rectal Brother AIDS Prostate cancer Social History Smoking/Tobacco Use Status: Never Second Hand Exposure: Yes Smoking risk assessment performed?: Yes Alcohol Intake: current Alcohol Intake frequency: a few times a month Drug use: Never Substance use type: does not use Adopted: No Caregiver/Support person: No Foster care: No Household members: significant other Housing: house Number of Children: 2 number of grandchildren: 9 Communication Needs: Corrective Lenses Education Level: college Details: Associates Do you need help understanding health information?: Never current occupation: [employer] Pets and animals: No Sexually active: Yes Do you think of yourself as: straight/heterosexual Current gender identity: female What is your relationship status?: living with partner How often do you talk on the phone with friends or family?: three or more times per week How often do you get together with friends or relatives?: once per week Do you belong to any clubs or organized social groups?: no Panel score (0-1 are the most socially isolated patients): 2 What type of physical activity do you participate in: walking and other Details: active at work Elina/Jehovah'S Witness: Taoist Special elina needs: No Seatbelt use: sometimes Helmet use: Yes Helmet use: always Drive intox or ride w/intox hi lo driver: No Do you feel safe at home: Yes Do you feel safe in your relationship?: Yes SDOH(Care Management) Screening Will the Patient Participate in the Screening?: Yes Do you worry about having a steady place to live?: no In the past 12 months, have you had to go without electric, gas, oil or water in your home?: no Have you or anyone in your house had to go without enough food to eat?: no Has lack of transportation kept you from medical appointments or from doing things needed for daily living?: no Has anyone in your support network made you feel unsafe for any reason?: no
[2024-02-22 11:58] VITALS: BP 134/104; PULSE 91; RESP 16; TEMP 36.8; O2SAT 96
--- NOTE | 2024-02-22 12:43 | PDOC.CMDIS ---
Date of service: 02/22/24 Time of Service: 15:56 LACE Index Scoring Tool Questions: Length of Stay (in days): 1 Was the patient admitted via the E.D.?: Yes E.D. Visits: 1 Answers: Total Score: 5 Risk of Readmission: Low Risk Care Management Discharge Plan Reason for Hospitalization: Atypical Chest pain Discharge Plan: Nneka is discharged home via private vehicle. She will follow up with community providers and her discharge plan of care as instructed. No new services are ordered prior to discharge. Patient/Family Education Needs: Review discharge instructions, limitations, medications and plan to follow up with community providers. Discuss ask me three. SDND Health Related Social Needs: No Data to Display
[2024-02-22 12:58] VITALS: BP 148/84
--- NOTE | 2024-02-22 14:47 | INITIAL_ITS ---
Date of service: 02/22/24 Time of Service: 14:47 Care Management Initial Assmt Initial Assessment REASON FOR HOSPITALIZATION:: Atypical chest pain PREVIOUS FUNCTIONAL STATUS/SOCIAL/FAMILY SUPPORTS:: Nneka lives in [facility] with her life partner Bennett. 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 CURRENT FUNCTIONAL STATUS:: Nneka was lying in bed with CM met with her. She had a stress test earlier in the day and is eager to discharge home. ADVANCE DIRECTIVES:: None on file. Has patient been provided with info about the portal/API?: Yes Did the patient sign up for the portal?: Yes (Prior to discharge) CODE STATUS:: Full Code INSURANCE COVERAGE / FINANCIAL ISSUES:: [place] of [place] CURRENT HOME/COMMUNITY SERVICES/EQUIPMENT:: None PRIMARY CARE PHYSICIAN:: Liyah Flynn POTENTIAL DISCHARGE NEEDS:: Follow up appts, discharge plan of care. PATIENT/FAMILY EDUCATION NEEDS:: Review discharge instructions, limitations, medications and plan to follow up with community providers. Discuss ask me three. ANTICIPATED BARRIERS TO DISCHARGE:: None identified TRANSPORTATION:: Self, car in parking lot PLAN:: Nneka will discharge home once medically cleared by hospitalist. She will drive herself home. She will follow up with community providers and her discharge plan of care as instructed. No new services are anticipated. PFSH All Active Problems (Updated 02/21/24 @ 23:09 by Jun Constantino MD) Atypical chest pain (Acute) Chest pain (Acute) Primary osteoarthritis of left knee (Acute) Depressive disorder (Chronic 11/17/11) Eczema of external ear (Acute) Left knee pain (Chronic) Obesity (Acute 07/05/12) Nasal septal perforation (Acute 09/18/17) Laryngoscopy w/ bx Dr. Paulino Marino 09/2017 acute and chronic inflammation, ulceration and subepithelial fibrosis Mixed incontinence (Acute 11/17/11) Kegel's; since TAMMI and bladder repair Insomnia (Acute 05/21/18) Family history of diabetes mellitus (Acute 11/17/11) Degenerative joint disease (DJD) of lumbar spine (Acute 07/09/14) MRI L4-L5 disc bulge Neurosurg consult 06/2014 Pain Clinic [facility] Dr. Auguste; epidural steroid injection 09/2014 Acute dermatitis (Acute 06/26/13) EARS Medical History Asthma (11/17/11) Albuterol once per month Essential hypertension (04/16/13) dx 04/2013 Primary fibromyalgia syndrome (11/17/11) 08/20; consults with Dr. Thomas [facility] [place] Anxiety Surgical History epidural steroid injection (10/08/14) Dr Powell Tubal Ligation, Laparoscopic 1990 TAMMI/BSO 1992, removed due to ruptured cysts Left medial tarsal tunnel surgery, [place], 2008 LARYNGOSCOPY W/ BX L forearm fracture, 2010 Cholecystectomy 1991 Bladder Surgery Sling to help incontinence, 1992 Appendectomy 1999 Family History Maternal Aunt No problems noted. Paternal Uncle Alcohol use disorder Asthma Paternal Aunt Alcohol use disorder Asthma Breast cancer Maternal Uncle Alcohol use disorder Stroke Father Asthma Cancer Prostate, bladder Depression Diabetes Heart disease Hypertension Prostate cancer Paternal Grandmother Asthma Paternal Cousin Asthma Mother Cancer throat Depression Diabetes Heart disease Hyperlipidemia Hypertension Stroke Brother Cancer prostate, bladder, rectal Brother AIDS Prostate cancer Social History Smoking/Tobacco Use Status: Never Second Hand Exposure: Yes Smoking risk assessment performed?: Yes Alcohol Intake: current Alcohol Intake frequency: a few times a month Drug use: Never Substance use type: does not use Adopted: No Caregiver/Support person: No Foster care: No Household members: significant other Housing: house Number of Children: 2 number of grandchildren: 9 Communication Needs: Corrective Lenses Education Level: college Details: Associates Do you need help understanding health information?: Never current occupation: [employer] Pets and animals: No Sexually active: Yes Do you think of yourself as: straight/heterosexual Current gender identity: female What is your relationship status?: living with partner How often do you talk on the phone with friends or family?: three or more times per week How often do you get together with friends or relatives?: once per week Do you belong to any clubs or organized social groups?: no Panel score (0-1 are the most socially isolated patients): 2 What type of physical activity do you participate in: walking and other Details: active at work Elina/Cheondoism: Jew Special elina needs: No Seatbelt use: sometimes Helmet use: Yes Helmet use: always Drive intox or ride w/intox livery car driver: No Do you feel safe at home: Yes Do you feel safe in your relationship?: Yes SDOH(Care Management) Screening Will the Patient Participate in the Screening?: Yes Do you worry about having a steady place to live?: no In the past 12 months, have you had to go without electric, gas, oil or water in your home?: no Have you or anyone in your house had to go without enough food to eat?: no Has lack of transportation kept you from medical appointments or from doing things needed for daily living?: no Has anyone in your support network made you feel unsafe for any reason?: no
[2024-02-22 14:54] VITALS: BP 149/105; PULSE 81; RESP 16; TEMP 36.5; O2SAT 97
--- NOTE | 2024-02-22 15:41 | W.PM.DS.N ---
Date of service: 02/22/24 Time of Service: 15:41 DS: Diagnosis Discharge Diagnosis (1) Chest pain: Status: Acute Discharge Plan Disposition Patient Disposition: Home Condition: Good Discharge Details Reason For Visit: Atypical Chest Pain Admit Date/Time: 02/21/24 20:59 Admit Provider: Junito Sinha Attending Provider: Junito Sinha Primary Care Provider: Liyah Flynn Hospital Course Hospital Course: This is a 58 year old female patient Chief Complaint: Chest pain and palpitations History of Present Illness: The patient, a 58-year-old female with a history of hypertension, presented to the emergency room 02/20/2023 for evaluation of chest pain and palpitations. She reported a similar episode in October 2022, where she was seen in the ED for atypical chest pain, which culminated in a negative stress test. In the ED she reported experienced a fluttering sensation in her chest at rest, with an irregular pulse at a rate of approximately 120 beats per minute. This lasted for approximately 20-30 minutes, followed by the development of left upper chest pain described variably as hot, crushing, pressure, or stabbing. The pain radiated to her left shoulder, arm, and scapula, waxing and waning over the course of five hours. Workup in the ED included two normal EKGs, negative chest CTA, and negative troponin x2. The patient received sublingual nitroglycerin with partial relief and was also administered morphine sulfate and Toradol. She reported the pain was mild after that. Hospital Course: The patient's chest pain and palpitations were assessed in the emergency room. Given the normal diagnostic workup and the patient's history of atypical chest pain, the symptoms were deemed non-cardiac in nature. The patient experienced partial relief with nitroglycerin and was administered pain management medications. The pain was mild, and the patient was placed on the medical floor for observation and stress test in the am. Patient's stress test was negative. She reported no more chest pain. Patient was discharged to home stable with follow up with PCP recommended. Home Meds and New Rx's Prescriptions: Continued hydrochlorothiazide 12.5 mg tablet 12.5 mg PO DAILY Qty: 90 1RF Hold Instructions: pt states not taking bc she lost insurance valsartan 80 mg tablet 80 mg PO DAILY Qty: 90 3RF levalbuterol tartrate [Xopenex HFA] 45 mcg/actuation HFA aerosol inhaler 2 puff Inhalation Q6H PRN Qty: 1 12RF Rx Instructions: for cough & SOB acetaminophen [Tylenol Arthritis Pain] 650 mg tablet extended release 1,300 mg PO Q4H PRN PRN multivitamin [Daily Vitamin] 1 EACH tablet 1 ea PO DAILY calcium carbonate-vitamin D3 1 EACH tablet 1 ea PO DAILY oxybutynin chloride 5 mg tablet extended release 24hr 5 mg PO DAILY Qty: 90 0RF Discharge Instructions Instructions: Chest Pain (DC) Stand Alone Forms: Nursing Discharge Form Referrals: Liyah Flynn NP [Primary Care Provider] - 02/27/24 5:00 pm () Activity:: Activity as Tolerated Equipment/Supplies:: No Equipment Needed Diet:: Low Sodium Discharge Orders Discharge Orders: Discharge Order (Routine); Ordered 02/22/24 Ordered By: Rebecca Barnes Discharge Data Discharge Date/Time-TO BE ENTERED AT DEPARTURE: 02/22/24 16:27 DS: Summary Time Spent with Patient providing and/or coordinating discharge services: Greater than 30 minutes Status at Discharge Functional status at discharge: independent ambulation Overall status at discharge: patient is back to baseline Mental Status: mental status grossly normal Speech and Movement: speech and movement normal Mood: congruent mood Affect: normal affect Quality:SDOH Health Related Social Needs: No Data to Display Exam Narrative Exam Narrative: Const: Sitting upright, awake, alert, pleasant HEENT: NC/AT. Normal facial exam. Eyes: Normal conjunctiva and sclera. Neck: Supple. Trachea midline. Lungs: Normal respiratory effort. Lungs are clear. No chest wall tenderness. Cor: RRR without murmur. Good radial pulses. GI: Soft. NT/ND. Neuro: A+O x 3. Normal speech, mentation, gait. Cranial nerves II - XII grossly intact. No gross motor or sensory deficit. Ext: No C/C/E. Psych Mental Status: mental status grossly normal Speech and Movement: speech and movement normal Mood: congruent mood Affect: normal affect DS: Data Vitals/I&O Vitals and I&O: Vital Signs Temperature 36.5 C 02/22/24 14:54 Temperature Source Tympanic 02/22/24 14:54 Pulse 81 02/22/24 14:54 Pulse Rhythm Regular 02/22/24 08:25 Pulse 72 02/21/24 21:10 Respiratory Rate 16 02/22/24 14:54 Respiratory Effort Normal, Non-Labored 02/22/24 08:25 Respiratory Depth Normal 02/22/24 08:25 Respiratory Pattern Normal 02/22/24 08:25 Blood Pressure 149/105 H 02/22/24 14:54 Blood Pressure Mean 119 02/21/24 21:01 Blood Pressure Position Sitting 02/21/24 16:30 Pulse Oximetry 97 02/22/24 14:54 Oxygen Delivery Method Room Air 02/22/24 14:54 Oxygen Flow Rate 0 02/22/24 14:54 Pain Level 0 02/22/24 14:54 Intake & Output 02/21/24 02/22/24 02/22/24 23:59 11:59 23:59 Weight 98.43 kg Other: Urine Appearance Clear Clear Comment pT stated that she had voided. Stool Size Large Stool Characteristics Liquid Voiding Methods Toilet Toilet Data Completed and Pending Labs on day of discharge: Labs from last 24 hours 02/21/24 02/21/24 02/21/24 23:05 20:07 16:50 WBC 4.80 RBC 4.96 Hgb 14.2 Hct 42.6 MCV 86 MCH 28.6 MCHC 33.3 RDW 12.8 Plt Count 235 MPV 9.8 Immature Gran % 0.2 Neutrophils % 39.6 Lymphocytes % 44.2 Monocytes % 9.6 Eosinophils % 5.8 Basophils % 0.6 Nucleated RBC % 0.0 Absolute Neutrophils 1.90 Absolute Lymphocytes 2.12 Absolute Monocytes 0.46 Absolute Eosinophils 0.28 Absolute Basophils 0.03 D-Dimer 639 H Sodium 139 Potassium 4.1 Chloride 103 Carbon Dioxide 28.0 Anion Gap 8.0 BUN 16 Creatinine 0.7 Est GFR (CKD-EPI 2020) 100.81 Glucose 90 Calcium 8.5 Magnesium 2.2 Total Bilirubin 0.6 AST 22 ALT 49 Alkaline Phosphatase 120 H Troponin I < 50 < 50 < 50 Total Protein 8.0 Albumin 3.8 PFSH All Active Problems (Updated 02/22/24 @ 15:43 by Rebecca Barnes NP) Atypical chest pain (Acute) Chest pain (Acute) Primary osteoarthritis of left knee (Acute) Depressive disorder (Chronic 11/17/11) Eczema of external ear (Acute) Left knee pain (Chronic) Obesity (Acute 07/05/12) Nasal septal perforation (Acute 09/18/17) Laryngoscopy w/ bx Dr. Paulino Marino 09/2017 acute and chronic inflammation, ulceration and subepithelial fibrosis Mixed incontinence (Acute 11/17/11) Kegel's; since TAMMI and bladder repair Insomnia (Acute 05/21/18) Family history of diabetes mellitus (Acute 11/17/11) Degenerative joint disease (DJD) of lumbar spine (Acute 07/09/14) MRI L4-L5 disc bulge Neurosurg consult 06/2014 [facility] Dr. Auguste; epidural steroid injection 09/2014 Acute dermatitis (Acute 06/26/13) EARS Medical History Asthma (11/17/11) Albuterol once per month Essential hypertension (04/16/13) dx 04/2013 Primary fibromyalgia syndrome (11/17/11) 08/20; [place]. [place] [facility] [place] [place] Surgical History epidural steroid injection (10/08/14) Dr Powell Tubal Ligation, Laparoscopic 1990 TAMMI/BSO 1992, removed due to ruptured cysts Left medial tarsal tunnel surgery, Anjana, 2008 LARYNGOSCOPY W/ BX L forearm fracture, 2010 Cholecystectomy 1991 Bladder Surgery Sling to help incontinence, 1992 Appendectomy 1999 Family History Maternal Aunt No problems noted. Paternal Uncle Alcohol use disorder Asthma Paternal Aunt Alcohol use disorder Asthma Breast cancer Maternal Uncle Alcohol use disorder Stroke Father Asthma Cancer Prostate, bladder Depression Diabetes Heart disease Hypertension Prostate cancer Paternal Grandmother Asthma Paternal Cousin Asthma Mother Cancer throat Depression Diabetes Heart disease Hyperlipidemia Hypertension Stroke Brother Cancer prostate, bladder, rectal Brother AIDS Prostate cancer Social History Smoking/Tobacco Use Status: Never Second Hand Exposure: Yes Smoking risk assessment performed?: Yes Alcohol Intake: current Alcohol Intake frequency: a few times a month Drug use: Never Substance use type: does not use Adopted: No Caregiver/Support person: No Foster care: No Household members: significant other Housing: house Number of Children: 2 number of grandchildren: 9 Communication Needs: Corrective Lenses Education Level: college 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: Associates Do you need help understanding health information?: Never current occupation: [employer] Pets and animals: No Sexually active: Yes Do you think of yourself as: straight/heterosexual Current gender identity: female What is your relationship status?: living with partner How often do you talk on the phone with friends or family?: three or more times per week How often do you get together with friends or relatives?: once per week Do you belong to any clubs or organized social groups?: no Panel score (0-1 are the most socially isolated patients): 2 What type of physical activity do you participate in: walking and other Details: active at work Elina/Confucianism: [employer] Special elina needs: No Seatbelt use: sometimes Helmet use: Yes Helmet use: always Drive intox or ride w/intox 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
== END 2024-02-22 16:27 | disposition home or self-care (01) ==
LOC: ER 21:11 → MS 21:47
PROVIDERS: Admitting Provider General Practice; Emergency Provider Emergency Medicine; PCP Nurse Practitioner; Visit Provider General Practice
DX: R07.89 Other chest pain (principal); I10 Essential (primary) hypertension; M17.12 Unilateral primary osteoarthritis, left knee; F32.A Depression, unspecified; F41.9 Anxiety disorder, unspecified; M79.7 Fibromyalgia; G47.00 Insomnia, unspecified; J45.909 Unspecified asthma, uncomplicated
CPT/HCPCS: 00123; 36415; 71275; 80053; 93005; 96374; 96375; 99285; 83735; 84484; 85025; 85379; 93010; 93017; 99222; 99238; G0378; J1885; J2270; J3490

== ENCOUNTER → 2024-04-01 03:48 | Outpatient (CLI) | payer BC, SELFPAY ==
--- NOTE | 2024-04-01 07:00 | DI.MAMMO_ITS ---
Exam(s) MAMMO SCREENING EXAM: MAMMO SCREENING CLINICAL HISTORY: screening,z12.39. TECHNIQUE: Bilateral full field digital CC and MLO mammographic images were obtained with 3D tomosyn thesis and utilizing computer aided detection (CAD). COMPARISON: Prior mammograms were reviewed. FINDINGS: There has been no significant change in the appearance and distribution of the fibroglandular tissue. There are no CAD designations. There are no new spiculated masses nor malignant appearing microcalcification groups. There is no significant architectural distortion nor skin thickening-retraction. IMPRESSION: No radiographic evidence of malignancy. BI-RADS Category 1 - Negative Breast Density - Category B - Scattered areas of fibroglandular density Breast density Category C or D implies that the patient has dense breast tissue. Dense breast tissue can make it harder to find cancer on a mammogram. Dense breast tissue is also associated with an incr eased risk of breast cancer. This information about the result of the mammogram report was provided to the patient to raise their awareness. Use this report when you speak with the patient about their risks for breast cancer, which includes their family history. At that time, you may recommend additional screening tests (Ultrasoun d or MRI) as these tests may add significant information. A negative radiographic report should not delay biopsy if a dominant or clinically suspicious mass is present. Up to ten percent of cancers are not identified on mammography. A negative report may reinforce clinical impression. Adenosis and dense breasts may obscure an underlying neoplasm. False positive reports average 6 to 10%. Patient will receive a letter notifying them of these results.
--- NOTE | 2024-04-01 10:52 | DI.RAD_ITS ---
Exam(s) XR KNEE LT 3V AP,LAT,MAGALIE EXAM: XR KNEE LT 3V AP,LAT,MAGALIE CLINICAL HISTORY: lt knee pain, m25.562. TECHNIQUE: 2D digital imaging was performed. COMPARISON: CR XR KNEE LT 2V AP,LAT from 12/02/2022 FINDINGS: Four views. No evidence of fracture. There does appear to be a joint effusion. Again noted is advanced narrowing of the lateral compartment as seen on the weight-bearing views. Me dial compartment exhibits normal height. Patellofemoral compartment cannot be well assessed as there is no merchant's view. Bone density normal. No osseous lesions. IMPRESSION: Advanced degenerative narrowing of the lateral compartment of the left knee again noted, slightly fur ther progressed when compared to 12/05/2019 Small joint effusion noted DATA REPOSITORY: RADIATION DOSE DELIVERED:
== END ==
PROVIDERS: PCP Nurse Practitioner; Visit Provider Nurse Practitioner
DX: Z12.31 Encounter for screening mammogram for malignant neoplasm of breast (principal); M25.562 Pain in left knee
CPT/HCPCS: 73562; 77063; 77067

== ENCOUNTER 2025-10-16 01:38 | Outpatient (CLI) | payer BC, SELFPAY ==
[2025-10-16 07:56] LABS: HCT 42.2 % (36.0-46.0); HGB 13.8 g/dL (11.2-15.7); MCH 27.9 pg (27.0-33.0); MCHC 32.7 % (32.0-36.0); MCV 85 fL (80-95); MPV 9.4 fL (8.0-11.0); Platelet Count 209 10^3/uL (130-400); RBC 4.95 10^6/uL (3.93-5.22); RDW 12.8 % (11.7-14.6); RDW-SD 39.6 fL; WBC 3.90 10^3/uL (4.4-10.8)
[2025-10-16 08:08] LABS: ESR 6 mm/hr (0-30)
[2025-10-16 08:31] LABS: C-Reactive Protein < 0.50 mg/dL (<=0.50)
[2025-10-16 08:34] LABS: TSH (W/Ref FT4) 0.56 uIU/mL (0.55-4.78); Vitamin D 25 Total 18 ng/mL (30-100)
== END 2025-10-16 01:39 | disposition home or self-care (01) ==
LOC: LBO 01:38
PROVIDERS: PCP Nurse Practitioner Family; Visit Provider Nurse Practitioner Family
DX: M79.7 Fibromyalgia (principal)
CPT/HCPCS: 36415; 82306; 85027; 85652; 86200; 84443; 86038; 86140; 86431